=== PATIENT | male | born 1965 | race Caucasian/White ===

== ENCOUNTER 2017-06-26 20:11 | Emergency (ER) | payer BC ==
[~2017-06-26] VITALS: Ht 188 cm; Wt 160.0 kg
[~2017-06-26 20:11] MED LIST: ASPI-664 PO; ATOR10TA23 PO; FLUO20CA22 PO; LAMO25TA6 PO; METO25TA7 PO; OLAN2.5T16 PO
[2017-06-26 20:15] VITALS: Ht 188 cm; Wt 160.0 kg
[2017-06-26] MEDS ORDERED: ATOR20TA38 PO (23:18)
[2017-06-26] MEDS ORDERED: LOSA1TAB19 PO (23:18)
--- NOTE | 2017-06-26 23:18 | ERD ---
ER Documentation Chief Complaint Date/Time DATE: 06/26/17 TIME: 23:16 Chief Complaint R knee pain for 3 months HPI 51-year-old male presents here in emergency department for complaints of right knee pain that started 3 months ago, patient states that it gives out on and off , yesterday, he was walking, it gave up on him, started to have the pain more worse, throbbing pain, 6/10 scale, is worse upon movement accompanied with swelling. Patient is able to bear weight on affected area but pain is worse. Patient denies any fever or chills. Patient denies any numbness or tingling. Patient denies any deformity. ROS All systems reviewed and are negative except as per history of present illness. Medications Home Meds Reported Medications Atorvastatin Calcium* (Atorvastatin Calcium*) Unknown Strength Tablet, PO QHS, # 30 TAB 06/26/17 Losartan-Hydrochlorothiazide (Losartan-HCTZ) Unknown Strength Tab, PO DAILY, TAB 06/26/17 Lamotrigine* (Lamictal* XR) 25 Mg Tab.er.24, 25 MG PO DAILY 09/06/12 Olanzapine (Zyprexa) 2.5 Mg Tablet, 2.5 MG PO DAILY 09/06/12 Metoprolol Succinate* (Toprol XL*) 25 Mg Tab.sr.24h, 25 MG PO DAILY 09/06/12 Atorvastatin (Lipitor) 10 Mg Tablet, 10 MG PO DAILY 09/06/12 Aspirin* (Aspirin* EC) 81 Mg Tablet.dr, 81 MG PO DAILY 09/06/12 Fluoxetine Hcl* (Fluoxetine Hcl*) 20 Mg Capsule, 20 MG PO BID 09/06/12 Allergies Allergies: Coded Allergies: No Known Allergy (Unverified , 09/06/12) PMhx/Soc History of Surgery: No Anesthesia Reaction: No Hx Neurological Disorder: Yes (bipolar,schizo affective,ptsd) Hx Respiratory Disorders: No Hx Cardiac Disorders: Yes (htn,hypercholesterolemia) Hx Psychiatric Problems: Yes (depression,ptsd) Hx Miscellaneous Medical Probl: No Hx Alcohol Use: Yes (stopped 100 days ago) Hx Substance Use: No Hx Tobacco Use: Yes (1 1/2 pack cigarrettes/day) Smoking Status: Current every day smoker FmHx Family History: No coronary disease, No diabetes, No other Physical Exam Vitals Vital Signs Date Time Temp Pulse Resp B/P Pulse Ox O2 Delivery O2 Flow Rate FiO2 06/26/17 20:15 98.1 114 24 133/75 97 Physical Exam GENERAL: The patient is well developed and appropriate for usual state of health, in no apparent distress. CHEST: Clear to auscultation bilaterally. There are no rales, wheezes or rhonchi. HEART: Regular rate and rhythm. No murmurs, clicks, rubs or gallops. No S3 or S4. ABDOMEN: Soft, nontender and nondistended. Good bowel sounds. No rebound or guarding. No gross peritonitis. No gross organomegaly or masses. No Garcia sign or McBurney point tenderness. BACK: No midline or flank tenderness. EXTREMITIES:Able to do full range of motion of the right knee without any restriction, mild swelling noted, no erythema noted, no deformity noted, mild tenderness on palpation on the lateral medial aspect of the knee. Equal pulses bilaterally. There is no peripheral clubbing, cyanosis or edema. No focal swelling or erythema. Full range of motion. Grossly neurovascularly intact. NEURO: Alert and oriented. Cranial nerves 2-12 intact. Motor strength in all 4 extremities with 5/5 strength. Sensation grossly intact. Normal speech and gait. SKIN: There is no apparent rash or petechia. The skin is warm and dry. HEMATOLOGIC AND LYMPHATIC: There is no evidence of excessive bruising or lymphedema. No gross cervical, axillary, or inguinal lymphadenopathy. Results 24 hrs Current Medications Medications (Trade) Dose Ordered Sig/Pedro Route PRN Reason Start Time Stop Time Status Last Admin Dose Admin Acetaminophen/ Hydrocodone Bitart ([place]ushing (10/325)) 1 tab ONCE ONCE PO 06/26/17 23:30 06/26/17 23:31 DC 06/26/17 23:16 Patient was given medication for pain here in emergency department, after treatment, patient verbalized feeling much better. Patient's pain is improved. PROCEDURE: knee x-ray CLINICAL INDICATION: Knee pain. TECHNIQUE: AP, lateral and oblique and the tunnel views of the right knee were obtained. COMPARISON: None FINDINGS: No evidence of fracture or dislocation. The medial, lateral, as well as patellofemoral knee joint compartments are well maintained. No joint effusion. No soft tissue or osseous abnormality. IMPRESSION: 1. No fracture or dislocation. 2. No joint effusion. 3. No soft tissue abnormality. RPTAT:AAJJ Ivon Calvillo, Physician Date Time Electronically viewed and signed by Ivon Calvillo Physician on 06/27/2017 00:27 PIPE/ CC: BETHANY WEINSTEIN NP After receiving patients xray report, a knee immobilizer was applied on the patients right knee. After application of the splint, patient has intact sensation and circulation on distal area of the affected joint. Patient does not complain of numbness or tingling after application of the splint. Patient tolerated procedure well. Crutches given afterwards Procedures/MDM Medical Decision Making: Patient's pain is most likely consistent with a knee sprain. There is no suspicion for neurovascular compromise. Patient has intact sensation and circulation of the affected extremity. There is low suspicion for septic arthritis. Patient does not have any fever. Radiology exams of the affected area does not show any fracture or dislocation. Disposition: Home. Patient is given prescription for ibuprofen for pain, Cushing for severe pain. Patient was advised to elevate the affected area and apply ice on affected area. Patient was advised that if symptoms are worse, numbness, tingling, high fever, unable to move joint, worsening symptoms, to return to emergency department immediately. Otherwise, patient is advised to follow up with the primary care doctor in 5-7 days for reevaluation of symptoms. Request MRI with PMD Departure Diagnosis: Primary Impression: Knee pain Chronicity: chronic Laterality: right Qualified Code: M25.561 - Chronic pain of right knee Condition: Stable Patient Instructions: Knee Pain, Uncertain Cause BETHANY WEINSTEIN NP Jun 26, 2017 23:18
[2017-06-26] MEDS ORDERED: HYDROCODONE/APAP (10/325) TAB PO ONE (23:30)
--- NOTE | 2017-06-27 00:27 | RADRPT ---
PROCEDURE: knee x-ray CLINICAL INDICATION: Knee pain. TECHNIQUE: AP, lateral and oblique and the tunnel views of the right knee were obtained. COMPARISON: None FINDINGS: No evidence of fracture or dislocation. The medial, lateral, as well as patellofemoral knee joint compartments are well maintained. No joint effusion. No soft tissue or osseous abnormality. IMPRESSION: 1. No fracture or dislocation. 2. No joint effusion. 3. No soft tissue abnormality. RPTAT:AAJJ Physician Claudine Date Time Electronically viewed and signed by Physician Claudine on 06/27/2017 00:27 PIPE/
[2017-06-27 00:37] VITALS: PULSE 96
[2017-06-27] MEDS ORDERED: HYDR-906 PO (00:39)
[2017-06-27] MEDS ORDERED: IBUP-1542 PO (00:39)
== END 2017-06-27 01:12 | disposition home or self-care (01) ==
LOC: FTE 20:11
DX: M25.561 Pain in right knee (principal); I10 Essential (primary) hypertension; F17.210 Nicotine dependence, cigarettes, uncomplicated; Z79.82 Long term (current) use of aspirin
CPT/HCPCS: 29505; 73562; 99283; Z7610

== ENCOUNTER → 2017-08-03 | Outpatient (CLI) | payer BC ==
[~2017-08-03] MED LIST changes: +ATOR20TA38 PO; +HYDR-906 PO; +IBUP-1542 PO; +LOSA1TAB19 PO; +METO-335 PO; -METO25TA7 PO
--- NOTE | 2017-08-04 09:30 | HKNOTE ---
DATE OF SERVICE: 08/03/2017 CHIEF COMPLAINT: Right knee pain. HISTORY OF PRESENT ILLNESS: This is a 52-year-old male complaining of right knee pain for the last several months. He has occasional locking and catching of the right knee. He has instability of th e right knee. He is using a cane for ambulation. He has visited the [facility] emergency [facility] several times for the right knee pain. He does not use any braces. He takes [place] from h is primary care physician with little pain relief. The pain is interfering with his activities of d aily living. He denies any groin or back pain. GAIT: Antalgic gait, use of a cane. RIGHT KNEE NEUTRAL ALIGNMENT: Tender over the medial joint line, nontender over the lateral joint l ine, 0 to 130 degrees range of motion, negative Lili, negative anterior drawer, negative posterio r drawer, positive Darian's. MOTOR STRENGTH: 5/5 quadriceps, hamstrings, tibialis anterior, gastrocsoleus and peroneals. X-RAYS RIGHT KNEE: Two views of the right knee demonstrate no fractures, dislocations. There are n o degenerative changes seen. IMPRESSION: A 52-year-old male with right knee strain. PLAN: We will request authorization for a right knee MRI to rule out meniscus tear. Following his MRI, he will call and make an appointment for followup. Dictated By: AHMET CABRERA/CHANTAL Conf#: [id number] DID#: [id number]
== END | disposition home or self-care (01) ==
LOC: HKI 13:53
PROVIDERS: ATTEND Orthopaedic Surgery Adult Reconstructive Orthopaedic Surgery
DX: S86.911A Strain of unspecified muscle(s) and tendon(s) at lower leg level, right leg, initial encounter (principal); X58.XXXA Exposure to other specified factors, initial encounter
CPT/HCPCS: G0463

== ENCOUNTER → 2017-09-19 | Outpatient (CLI) | payer BC ==
--- NOTE | 2017-09-19 15:42 | HKNOTE ---
DATE OF SERVICE: 09/19/2017 CHIEF COMPLAINT: Right knee pain. HISTORY OF PRESENT ILLNESS: Mr. Horton is here today for followup to go over his MRI results of the right knee. He is complaining of pain and instability of the right knee. He has difficulty ambulating. He is using a cane for ambulation. He has locking, catching of his knee. Otherwise, he has no complaints. RIGHT KNEE EXAMINATION: 0 to 120 degrees range of motion, stable to varus valgus stress. Negative Lili, negative anterior drawer, negative posterior drawer. Positive Darian's. MRI RIGHT KNEE: There is a partial tear of the anterior cruciate ligament. There is a complex tear of the posterior horn of the medial meniscus. There is a popliteal fossa cyst. IMPRESSION: A 52-year-old male with a right knee posterior horn medial meniscus tear and partial tear of the anterior cruciate ligament. PLAN: I discussed treatment options with Mr. Horton. I discussed weight loss and physical therapy. We will also request authorization for referral to Dr. Anthony Mejia for consultation. He will follow up with me as needed. Dictated By: AHMET CABRERA/CHANTAL Conf#: [id number] DID#: [id number] LORRAINE
== END | disposition home or self-care (01) ==
LOC: HKI 09:18
PROVIDERS: ATTEND Orthopaedic Surgery Adult Reconstructive Orthopaedic Surgery
DX: S83.241D Other tear of medial meniscus, current injury, right knee, subsequent encounter (principal); M25.561 Pain in right knee
CPT/HCPCS: G0463

== ENCOUNTER 2017-10-27 06:36 | Emergency (ER) | END 2017-10-27 10:30 | disposition left against medical advice (07) ==

== ENCOUNTER 2018-07-19 22:25 | Inpatient (IN) | END 2018-07-22 10:11 | disposition left against medical advice (07) | DRG 304 ==

== ENCOUNTER 2018-12-07 08:20 | Inpatient (IN) | payer BC ==
[~2018-12-07] VITALS: Ht 188 cm; Wt 141.9 kg
[2018-12-07] VITALS (16 sets, daily range): BP systolic 150–181; BP diastolic 96–116; PULSE 79–99; RESP 14–24; Ht 188 cm; Wt 141.9 kg
[~2018-12-07 08:20] MED LIST changes: -ASPI-664 PO; +ASPI-817 PO; +HYDR-4011 PO; -HYDR-906 PO; -LOSA1TAB19 PO; +LOSA1TAB22 PO
[2018-12-07] MEDS ORDERED: morphine 4 MG/ML VIAL IV STA (08:26)
[2018-12-07] MEDS ORDERED: ONDANSETRON 4 MG INJ IV STA (08:26)
[2018-12-07] MEDS ORDERED: IPRATROPIUM (NEB) 0.5 MG/2.5 ML AMP INH STA (08:26)
[2018-12-07] MEDS ORDERED: ALBUTEROL 0.5% (NEB) 2.5 MG/0.5 ML AMP INH STA (08:26)
[2018-12-07] MEDS ORDERED: LORAZEPAM 2 MG INJ IV STA (08:26)
[2018-12-07] MEDS ORDERED: METHYLPREDNISOLONE 125 MG INJ IV STA (08:26)
[2018-12-07] MEDS ORDERED: FUROSEMIDE 40 MG INJ IV ONE (08:30)
[2018-12-07] MEDS ORDERED: NITROGLYCERIN 50 MG/D5W (PMX) 250 ML IV STA (08:34)
--- NOTE | 2018-12-07 08:42 | ERD ---
ER Documentation Chief Complaint Chief Complaint shortness of breath - history of CHF HPI This is a 53-year-old male with a history of COPD utilizes tobacco, congestive heart failure systolic dysfunction, hypertension, psychiatric disturbance with posttraumatic stress disorder, bipolar affective disorder, hyperlipidemia and remote amphetamine abuse. Patient indicates he is not utilized crystal meth for over 4 months. Indicates he is not taking any medications for over 1 month due to changes in his insurance. He stated he recently moved to [place] and therefore was unable to get in to see a primary care physician. He presents to the emergency department today due to the severe dyspnea which he states is progressively worsened over the past 48 hours. He states he is unable to walk several steps before becoming short of breath. He has had a productive cough with whitish sputum but denies any fever shaking or chills. He denies any chest pain or pressure. He denies any swelling of his lower extremities. ROS All systems reviewed and are negative except as per history of present illness. Medications Home Meds Active Scripts Hydrocodone/Acetaminophen ([place] 5-325 Tablet) 1 Each Tablet, 1 TAB PO Q6H, #20 TAB Prov:BETHANY WEINSTEIN NP 06/27/17 Ibuprofen* (Motrin*) 600 Mg Tab, 600 MG PO Q6H PRN for PAIN AND OR ELEVATED TEMP, #30 TAB Prov:BETHANY WEINSTEIN SEX THERAPIST 06/27/17 Reported Medications Atorvastatin Calcium* (Atorvastatin Calcium*) Unknown Strength Tablet, PO QHS, #30 TAB 06/26/17 Losartan-Hydrochlorothiazide (Losartan-HCTZ) Unknown Strength Tab, PO DAILY, TAB 06/26/17 Lamotrigine* (Lamictal* XR) 25 Mg Tab.er.24, 25 MG PO DAILY 09/06/12 Olanzapine (Zyprexa) 2.5 Mg Tablet, 2.5 MG PO DAILY 09/06/12 Metoprolol Succinate* (Toprol XL*) 25 Mg Tab.sr.24h, 25 MG PO DAILY 09/06/12 Atorvastatin (Lipitor) 10 Mg Tablet, 10 MG PO DAILY 09/06/12 Aspirin* (Aspirin* EC) 81 Mg Tablet.dr, 81 MG PO DAILY 09/06/12 Fluoxetine Hcl* (Fluoxetine Hcl*) 20 Mg Capsule, 20 MG PO BID 09/06/12 Allergies Allergies: Coded Allergies: No Known Allergy (Unverified , 09/06/12) PMhx/Soc Anesthesia Reaction: No Hx Neurological Disorder: No (Patient denies) Hx Respiratory Disorders: Yes (COPD) Hx Cardiac Disorders: Yes (Hypertension, Hyperlipidemia) Hx Psychiatric Problems: Yes (PTSD, Bipolar) Hx Miscellaneous Medical Probl: No (Patient denies) Hx Alcohol Use: Yes Hx Substance Use: Yes Hx Tobacco Use: Yes Physical Exam Vitals Vital Signs Date Temp Pulse Resp B/P (MAP) Pulse Ox O2 O2 Flow FiO2 Time Delivery Rate 12/07/18 99 22 212/122 100 BIPAP 10:15 (152) 12/07/18 104 22 192/124 100 BIPAP 10:00 (146) 12/07/18 100 28 09:58 12/07/18 102 100 40 09:56 12/07/18 109 22 196/122 100 BIPAP 09:35 (146) 12/07/18 110 22 200/120 100 BIPAP 09:20 (146) 12/07/18 110 22 180/130 100 BIPAP 09:05 (147) 12/07/18 109 100 40 08:42 12/07/18 97.7 122 32 216/134 96 08:21 (161) Physical Exam Constitutional:Well-developed. Well-nourished. Patient in severe respiratory distress. HEENT:Normocephalic. Atraumatic.Pupils were equal round reactive to light. Moist mucous membranes.No tonsillar exudates. Neck: No nuchal rigidity. No lymphadenopathy. No posterior cervical spine tenderness or step-offs. Respiratory: Patient using accessory muscles of respiration. Unable to speak more than 2 words at a time before becoming short of breath. Bilateral rhonchi and wheezing bilaterally. Cardiovascular: Regular rate regular rhythm.No murmurs. No rubs were appreciated.S1, S2 normal. Distal pulses are palpable 2+ bilaterally. GI: Abdomen was soft. Nontender. Non Distended. No pulsatile abdominal masses or bruits. No rebound. No guarding. Bowel sounds were present and normal. Muscle skeletal: Full range of motion of both the upper and lower extremities bilaterally.Normal muscle tone.No assymetrical calf tenderness or swelling. Skin: Diaphoretic. No petechia, no purpura. No lesions on the palms or the soles of the feet. No maculopapular rash. NEURO: Patient was alert, awake, orientated x3.No facial droop. Gait observed and normal with no ataxia however patient was in severe respiratory distress and had difficulty ambulating.Speech had regular rate and rhythm. No focal neurological deficits. Result Diagram: 12/07/18 0835 12/07/18 0835 Results 24 hrs Laboratory Tests Test 12/07/18 08:35 12/07/18 09:38 White Blood Count 9.4 10^3/ul Red Blood Count 5.52 10^6/ul Hemoglobin 13.5 g/dl Hematocrit 43.6 % Mean Corpuscular Volume 79.0 fl Mean Corpuscular Hemoglobin 24.5 pg Mean Corpuscular Hemoglobin Concent 31.0 g/dl Red Cell Distribution Width 14.5 % Platelet Count 261 10^3/UL Mean Platelet Volume 10.6 fl Immature Granulocytes % 0.200 % Neutrophils % 71.9 % Lymphocytes % 17.1 % Monocytes % 8.8 % Eosinophils % 1.3 % Basophils % 0.7 % Nucleated Red Blood Cells % 0.0 /100WBC Immature Granulocytes # 0.020 10^3/ul Neutrophils # 6.8 10^3/ul Lymphocytes # 1.6 10^3/ul Monocytes # 0.8 10^3/ul Eosinophils # 0.1 10^3/ul Basophils # 0.1 10^3/ul Nucleated Red Blood Cells # 0.0 10^3/ul Prothrombin Time 13.5 Sec Prothrombin Time Ratio 1.1 INR International Normalized Ratio 1.02 Activated Partial Thromboplast Time 29.2 Sec Sodium Level 140 mmol/L Potassium Level 4.3 mmol/L Chloride Level 108 mmol/L Carbon Dioxide Level 23 mmol/L Anion Gap 9 Blood Urea Nitrogen 17 mg/dl Creatinine 0.99 mg/dl Est Glomerular Filtrat Rate mL/min > 60 mL/min Glucose Level 120 mg/dl Calcium Level 9.2 mg/dl Total Bilirubin 0.7 mg/dl Direct Bilirubin 0.00 mg/dl Indirect Bilirubin 0.7 mg/dl Aspartate Amino Transf (AST/SGOT) 32 IU/L Alanine Aminotransferase (ALT/SGPT) 35 IU/L Alkaline Phosphatase 139 IU/L Creatine Kinase 127 IU/L Creatinine Kinase MB (Mass) 3.07 ng/ml Troponin I 0.050 ng/ml B-Type Natriuretic Peptide 4700 PG/ML Total Protein 6.8 g/dl Albumin 4.0 g/dl Globulin 2.80 g/dl Albumin/Globulin Ratio 1.42 Acetaminophen Level < 10.0 ug/ml Ethyl Alcohol Level < 10.0 mg/dl Urine Color YELLOW Urine Clarity SLIGHTLY CLOUDY Urine pH 5.0 Urine Specific [place] 1.023 Urine Ketones 2+ mg/dL Urine Nitrite NEGATIVE mg/dL Urine Bilirubin NEGATIVE mg/dL Urine Urobilinogen NEGATIVE mg/dL Urine Leukocyte Esterase NEGATIVE Jacey/ul Urine Microscopic RBC 3 /HPF Urine Microscopic WBC 4 /HPF Urine Mucus MANY /HPF Urine Hemoglobin 1+ mg/dL Urine Glucose NEGATIVE mg/dL Urine Total Protein NEGATIVE mg/dl Urine Opiates Screen Positive Urine Barbiturates Negative Urine Amphetamines Screen Pending Urine Benzodiazepines Screen Negative Urine Cocaine Screen Negative Urine Cannabinoids Negative Current Medications Medications Dose Sig/Pedro Start Time Status Last (Trade) Ordered Route PRN Stop Time Admin Dose Reason Admin Lorazepam 1 mg ONCE STAT 12/07/18 DC 12/07/18 (Ativan) IV 08:26 08:39 12/07/18 08:34 Morphine 4 mg ONCE STAT 12/07/18 DC 12/07/18 Sulfate IV 08:26 08:40 (morphine) 12/07/18 08:34 Ondansetron 4 mg ONCE STAT 12/07/18 DC 12/07/18 HCl (Zofran IV 08:26 08:39 Inj) 12/07/18 08:34 Furosemide 80 mg ONCE ONCE 12/07/18 DC 12/07/18 (Lasix) IV 08:30 08:39 12/07/18 08:34 Albuterol 10 mg ONCE STAT 12/07/18 DC 12/07/18 (Proventil INH 08:26 08:49 0.5% (Neb)) 12/07/18 08:34 Ipratropium 1 mg ONCE STAT 12/07/18 DC 12/07/18 [place] INH 08:26 08:49 (Atrovent 12/07/18 08:34 0.02% (Neb)) 125 mg ONCE STAT 12/07/18 DC 12/07/18 Methylprednis IV 08:26 08:39 olone Sodium 12/07/18 08:34 Succinate (Solu-Medrol) 250 ml @ ONCE STAT 12/07/18 12/07/18 Nitroglycerin 12 mls/hr IV 08:34 09:22 / Dextrose 12/08/18 05:23 Ondansetron 4 mg ER BRIDGE 12/07/18 HCl (Zofran PRN IV 10:30 Inj) NAUSEA/VOMITI 12/08/18 10:29 NG 650 mg ER BRIDGE 12/07/18 Acetaminophen PRN PO 10:30 (Tylenol .MILD PAIN 12/08/18 10:29 Tab) 1-3 OR TEMP Procedures/MDM The patient presented to the emergency department with shortness of breath. My differential diagnosis included but was not limited to upper airway obstruction, CHF, pulmonary embolism, cardiac ischemia, pneumonia, pneumothorax, anemia, drug overdose, pulmonary edema, COPD or asthma. The patient was admitted placed on a nurse monitoring continuous pulse oximetry and IV access was established by nursing staff. The patient was placed on noninvasive mechanical ventilation due to his severe dyspnea. He was given nebulizer treatments of albuterol and Atrovent. I also administered IV steroids given that the patient has underlying COPD which also felt to be a component to his respiratory distress in conjunction with congestive heart failure. The patient was also given intravenous Lasix to help with potential fluid overload 12 Lead EKG tracing ordered and reviewed by myself showed: Sinus tachycardia at 119 bpm and no arrhythmia. DE interval normal. QRS duration normal. No ST segment elevation left ventricular hypertrophy. No ST segment depression. No changes consistent with acute ischemia. The patient also appeared to be very anxious and was given IV Ativan. He was now complaining of diffuse myalgias and was also given intravenous morphine and Zofran for analgesic control This patient also presented to the emergency department with severely elevated blood pressure. My differential diagnosis included but was not limited to conditions that could end-organ damage such as acute coronary syndrome, acute pulmonary edema, aortic dissection, subarachnoid hemorrhage, intracerebral hemorrhage, cerebral infarction, withdrawal syndromes from beta blockers, or s tates of catecholamine excess such as pheochromocytoma or drug intoxication. The patient had uncontrolled hypertensive with end-organ damage to suggest hypertensive emergency. The treatment goal was immediate reduction of the mean arterial blood pressure. This was done in a controlled, graded manor, using improvement of the patient's condition as a guide. The patient's blood pressure reduction did not exceed more then a 20-25 percent reduction within the first 30 to 60 minutes. The patient was put on a nurse monitoring, continuous pulse oximetry, and IV access was established by nursing staff. The antihypertensive agent used was nitroglycerin The patient's BNP was significantly elevated at 4700. He had significant improvement of his respiratory distress when placed on BiPAP. This was consistent with his congestive heart failure exacerbation symptoms. The patient will be admitted in serious condition to the telemetry service under the care of the hospitalist Dr. Wen Critical Care: Time: 70 minutes Treatments/Evaluations: Close monitoring and treatment of unstable vital signs, cardiorespiratory, and neurologic status, while maintaining tight balance of fluid, respiratory, and cardiac interventions. Time does not include performing any of the above billable procedures. Departure Diagnosis: Primary Impression: COPD exacerbation Additional Impressions: CHF exacerbation Heart failure type: systolic Qualified Codes: I50.23 - Acute on chronic sy stolic (congestive) heart failure Respiratory distress Hypertensive emergency Condition: Serious CHACHO MORGAN MD Dec 07, 2018 08:42
[2018-12-07] MEDS ORDERED: ACETAMINOPHEN 325 MG TAB PO PRN ×2 (10:30→16:00)
[2018-12-07] MEDS ORDERED: ONDANSETRON 4 MG INJ IV PRN ×2 (10:30→16:00)
--- NOTE | 2018-12-07 15:54 | QN ---
Documentation Comment H and P dictated. addendum Patient had recent echo that was reviewed and -both systolic and diastolic dysfxn with CM and last EF of 35% -Noncompliance to therapy, will need counselling prior to d/c . JORGE SLATER Dec 07, 2018 15:54
[2018-12-07] MEDS ORDERED: NITROGLYCERIN (SL) 0.4 MG TAB SL PRN (16:00)
[2018-12-07] MEDS ORDERED: ZOLPIDEM 5 MG TAB PO PRN (16:00)
[2018-12-07] MEDS ORDERED: LORAZEPAM 0.5 MG TAB PO PRN (16:00)
--- NOTE | 2018-12-07 16:31 | HP ---
DATE OF ADMISSION: 12/07/2018 PRESENTING COMPLAINT: Shortness of breath. Please note that I am unable to give a detailed history because the patient is on the BiPAP mask and even though he was still having shortness of breath, he looks more comfortable. HISTORY OF PRESENTING COMPLAINT: Mr. Horton is a 53-year-old male with a past medical history of c ongestive heart failure as well as high blood pressure and dyslipidemia, who presents to the emergenc y room because of shortness of breath that has been worsening for the last 3 days. The patient also has a psychiatric history of PTSD and bipolar disorder per the records. He tells me that his shortne ss of breath has been getting worse over the last 3 days, but he does not really have any medication at home that he takes including medications for his high blood pressure and has not seen a doctor in a while. Of note is that this patient was last seen by myself back in 06/2018, at that time he left the intensive care unit against medical advice. When he came in, he was in some respiratory distress and had to be put on noninvasive positive pressure ventilation to improve his oxygenation. Per the emergency room notes, the patient recently moved to [place] and has not seen a primary care do ctor. He also has been having a lot of dyspnea on exertion and a lot of orthopnea. He is unable to lie flat. I asked him about lower extremity swelling and he says he feels like his extremities are m ildly slow, but they are not significant. Based on review of the chart, the patient used to have a h istory of noncompliance with therapy. PAST MEDICAL HISTORY: 1. High blood pressure. 2. Dyslipidemia. 3. CHF. 4. PTSD and bipolar disorder. 5. Tobacco use. The patient continues to smoke actively. PAST SURGICAL HISTORY: No documented surgical history. ALLERGIES: NO KNOWN DRUG ALLERGIES. SOCIAL HISTORY: Even though patient denies recent methamphetamine use, the patient's urine drug toxi cology screen was positive for meth use. As mentioned earlier, he smokes about a pack and a half of cigarettes daily. Denies alcohol use. HOME MEDICATIONS: As mentioned earlier, the patient has not taken any medications for months, but hi s previous recommended medications were reviewed in the chart. PHYSICAL EXAMINATION VITAL SIGNS: At this time, temperature 98.2, pulse 86, respirations 18, blood pressure 151/96, satur ations 100% on BiPAP with FIO2 of 28%. GENERAL: Comfortable on the BiPAP, was in no distress. He was sleeping when I walked in, but was ea sy to arouse. HEENT: Head is normocephalic without evidence of trauma. Pupils are equal and reactive. There was no conjunctival pallor. There was no scleral icterus. Mucous membranes were not evaluated due to th e presence of BiPAP mask. NECK: Difficult to examine. CHEST: He had diminished breath sounds bilaterally. There was no wheezing. Again due to patient's habitus, it is hard to ascertain for crackles. CARDIOVASCULAR: Heart sounds, S1 and S2. No murmurs were auscultated. ABDOMEN: Protuberant, soft, nontender with normoactive bowel sounds. EXTREMITIES: Lower extremity had minimal, if any, trace edema. SKIN: Otherwise devoid of rash or jaundice. LABORATORY VALUES: So far, we have 1 negative troponin. BNP was 4700. The rest of complete metabol ic profile was basically normal except for mild elevation in alkaline phosphatase. Hematology: The patient has hypochromasia, microcytosis and a mild anemia. Coag profile is unremarkable. Urinalysis was not suggestive of an infection. Urine toxicology screen was positive for methamphetamine and op iates. DIAGNOSTIC DATA: EKG: Normal sinus rhythm without arrhythmias, good rate control. IMAGING: Chest x-ray: Moderate cardiomegaly with mild pulmonary vascular congestion. ASSESSMENT: A 53-year-old male who comes in for shortness of breath worsening for the last 3 days wi th orthopnea and dyspnea on exertion, admitted and managed for the followin. Acute congestive heart failure exacerbation. 2. History of noncompliance with therapy. 3. Hypertension, now with still suboptimal control, status post hypertensive emergency. When the edgar beckham came to the emergency room, his systolic blood pressure started at 212/122 and is requiring beulah ardipine drip to keep it controlled. 4. History of dyslipidemia, status unknown. 5. Chronic methamphetamine user. 6. Chronic tobacco user. The patient smokes 1-1/2 packs per day. 7. History of posttraumatic stress disorder and depression. 8. Likely obstructive sleep apnea. 9. Acute respiratory failure requiring noninvasive positive pressure ventilation. PLAN: Admit the patient to telemetry floor. Continue seizure management to include diuresis and wea n off oxygen therapy. Wean off the BiPAP. Resume medications to improve blood pressure control. Co nsult cardiology and pulmonary consultation if indicated. Rule out acute coronary syndrome. Further intervention will depend on his clinical course. Plan of care has been discussed with him in detail . Questions have been answered. Prophylaxis, he will be on Lovenox. Dictated By: JORGE SLATER MD BA/CHANTAL Conf#: [id number] DID#: [id number] CC: COLE MANZANO DO; CHACHO MORGAN MD;*EndCC*
[2018-12-07] MEDS: DOCUSATE SODIUM 100 MG CAP PO SCH ×2 (18:11→18:49)
[2018-12-07] MEDS ORDERED: LOSARTAN 50 MG TAB PO ONE (19:00)
[2018-12-07] MEDS: ALBUTEROL/IPRATROPIUM (NEB) 3 ML AMP HHN PRN (20:21)
[2018-12-07] MEDS: ATORVASTATIN 10 MG TAB PO SCH (20:53)
[2018-12-07] MEDS: METOPROLOL (XL) 25 MG TAB PO SCH (20:54)
[2018-12-07] MEDS: NIFEdipine (XL) 30 MG TAB PO SCH (20:54)
[2018-12-07] MEDS: FAMOTIDINE 20 MG TAB PO SCH (20:55)
[2018-12-08] VITALS (36 sets, daily range): BP systolic 128–213; BP diastolic 77–133; PULSE 80–110; RESP 13–22
[2018-12-08] MEDS ORDERED: LABETALOL HCL 20MG INJ IV PRN (03:30)
[2018-12-08] MEDS: hydrALAzine 20 MG INJ IV PRN (04:17)
[2018-12-08] MEDS: DOCUSATE SODIUM 100 MG CAP PO SCH ×2 (05:20→21:01)
[2018-12-08] MEDS ORDERED: LOSARTAN 50 MG TAB PO SCH (09:00)
[2018-12-08] MEDS: FAMOTIDINE 20 MG TAB PO SCH ×2 (10:51→21:01)
[2018-12-08] MEDS: SERTRALINE 100 MG TAB PO SCH (10:51)
[2018-12-08] MEDS: NIFEdipine (XL) 30 MG TAB PO SCH (10:51)
[2018-12-08] MEDS: FUROSEMIDE 40 MG INJ IV SCH (10:51)
[2018-12-08] MEDS: METOPROLOL (XL) 25 MG TAB PO SCH (10:52)
[2018-12-08] MEDS: ASPIRIN 81 MG TAB PO SCH (10:52)
[2018-12-08] MEDS: ENOXAPARIN 40 MG/0.4 ML SYG SC SCH (11:01)
--- NOTE | 2018-12-08 12:20 | PN ---
Date/Time of Note Date/Time of Note DATE: 12/08/18 TIME: 12:19 Assessment/Plan VTE Prophylaxis Risk score (from Ns)>0 risk: 8 SCD applied (from Nsg): Yes Pharmacological prophylaxis: LMWH Lines/Catheters IV Catheter Type (from Nrs): Peripheral IV Assessment/Plan Hospital Course SUBJECTIVE: Dyspnea improved. Denies any chest pain. OBJECTIVE: Physical Exam General: Morbidly obese, 53 year-old male lying in bed in no apparent distress. HEENT: Normocephalic, atraumatic. Eyes: Anicteric sclerae, conjunctivae clear. ENT: Nasal septum midline, oral mucosa moist. Neck: Short and obese. Respiratory: Bilaterally diminished breath sounds. No use of accessory muscles of respiration. Bilateral rhonchi. Cardiovascular: S1, S2 heard. Regular rate and rhythm. Abdomen: Soft, nontender, and nondistended. Bowel sounds positive in all 4 quadrants. Genitourinary: Deferred. Extremities: No cyanosis, no clubbing. Bilateral 1+-2+ pedal edema. Neurologic: Cranial nerves II through XII grossly intact. The patient is awake, alert, and oriented. Labs & Vitals per chart ASSESSMENT & PLAN 53-year-old male with comorbidities including cardiomyopathy with ejection fraction of 35%, systolic heart failure, hypertension, dyslipidemia, morbid obesity, nicotine use, methamphetamine abuse, and mood disorder who came to the emergency room with chief complaint of dyspnea who was found to have evidence of underlying CHF exacerbation and was admitted to inpatient setting for further treatment and evaluation. 1. Acute respiratory failure. -Hypoxic. -Probably secondary to CHF exacerbation. -Status post noninvasive positive pressure ventilation. -Continue diuresis. 2. Acute on chronic CHF exacerbation. -Systolic dysfunction. -Continue diuresis. 3. Cardiomyopathy. -Ejection fraction of 35%. -Continue beta-blockers and ARB's. 4. Hypertensive emergency. -Status post nitroglycerin drip. Continue beta-blockers, ARB, and-calcium channel blockers. 5. Dyslipidemia. -Continue statins. 6. Substance abuse. -Chronic nicotine and methamphetamine user. -Cessation advised. 7. Morbid obesity. -BMI more than 40. -Weight reduction would be advised. 8. Fluids, electrolytes, and nutrition. -Low-cholesterol diet. 9. DVT prophylaxis. -Subcutaneous Lovenox. 10. Plan. -Continue diuretic therapy. -Await clinical improvement. -Obtain cardiology evaluation. -Will transfer the patient to telemetry floor. The patient was seen in collaboration with Dr. Koch. Critical care time: 35 minutes. Result Diagram: [id number]/[id number] Results 24hrs Laboratory Tests Test 12/07/18 14:00 12/07/18 16:17 12/07/18 22:00 12/07/18 22:11 Blood Gas Blood arterial Blood arterial Specimen Source Arterial Blood 12/07/2018 2:58: 12/07/2018 8:00: Date Drawn 25 PM 28 PM Arterial Blood 7.409 7.398 pH (Temp corrected) Arterial Blood 43.3 44.9 pCO2 (Temp correct) Arterial Blood 81.6 75.3 L pO2 (Temp corrected) Arterial Blood 26.8 H 27.1 H HCO3 Arterial Blood 1.8 1.8 Base Excess Arterial Blood 95.6 94.3 L Oxygen Saturatio n Kal Test ACCEPTAB ACCEPTAB Arterial Blood Right Radial Left Radial Gas Puncture Site Arterial 0.8 0.6 Blood Carboxyhem oglobin Arterial Blood 0.3 0.3 Methemoglobin Blood Gas A-a O2 66.9 H 64.1 H Differential Oxyhemoglobin 94.5 93.5 Percent Blood Gas 37.0 37.0 Temperature Blood Gas 14.0 Respiration Rate Blood Gas Actual 20 16 Respiration Rate Blood Gas MASK - BIPAP NASAL CANNULA Modality FiO2 28.0 27.0 Blood Gas 10 Pressure Support Blood Gas 15/5 IPAP/EPAP Ratio Blood Gas Myrna CONNOLLY Notified Whom Blood Gas 12/07/2018 3:07: 12/07/2018 8:11: Notified Time 05 PM 05 PM Creatine Kinase 79 64 Creatine Kinase 3.1 3.8 Index Creatinine 2.48 H 2.44 H Kinase MB (Mass) Troponin I 0.014 0.019 Test 12/08/18 05:20 White Blood 9.2 Count Red Blood Count 5.47 Hemoglobin 13.5 L Hematocrit 43.9 Mean Corpuscular 80.3 L Volume Mean Corpuscular 24.7 L Hemoglobin Mean Corpuscular 30.8 L Hemoglobin Shelby nt Red Cell 13.9 Distribution Width Platelet Count 281 Mean Platelet 11.0 H Volume Immature 0.700 H Granulocytes % Neutrophils % 89.7 H Lymphocytes % 6.6 L Monocytes % 2.9 Eosinophils % 0.0 Basophils % 0.1 Nucleated Red 0.0 Blood Cells % Immature 0.060 H Granulocytes # Neutrophils # 8.3 H Lymphocytes # 0.6 L Monocytes # 0.3 Eosinophils # 0.0 Basophils # 0.0 Nucleated Red 0.0 Blood Cells # Sodium Level 138 Potassium Level 4.9 Chloride Level 103 Carbon Dioxide 22 Level Anion Gap 13 Blood Urea 21 H Nitrogen Creatinine 0.76 Est Glomerular > 60 Filtrat Rate mL/min Glucose Level 195 Calcium Level 8.8 Magnesium Level 2.0 Exam/Review of Systems Exam Vitals Vital Signs Date Temp Pulse Resp B/P (MAP) Pulse Ox O2 O2 Flow FiO2 Time Delivery Rate 12/08/18 2.0 10:41 12/08/18 84 08:00 12/08/18 16 95 Nasal 04:15 Cannula 12/08/18 98.5 04:00 12/07/18 98 20:22 Intake and Output 12/07/18 12/07/18 12/08/18 1515:00 23:00 07:00 IntakeIntake Total 268 ml OutputOutput Total 3000 ml 1000 ml BalanceBalance -3000 ml -732 ml Results Results 24hrs Laboratory Tests Test 12/07/18 14:00 12/07/18 16:17 12/07/18 22:00 12/07/18 22:11 Blood Gas Blood arterial Blood arterial Specimen Source Arterial Blood 12/07/2018 2:58: 12/07/2018 8:00: Date Drawn 25 PM 28 PM Arterial Blood 7.409 7.398 pH (Temp corrected) Arterial Blood 43.3 44.9 pCO2 (Temp correct) Arterial Blood 81.6 75.3 L pO2 (Temp corrected) Arterial Blood 26.8 H 27.1 H HCO3 Arterial Blood 1.8 1.8 Base Excess Arterial Blood 95.6 94.3 L Oxygen Saturatio n Kal Test ACCEPTAB ACCEPTAB Arterial Blood Right Radial Left Radial Gas Puncture Site Arterial 0.8 0.6 Blood Carboxyhem oglobin Arterial Blood 0.3 0.3 Methemoglobin Blood Gas A-a O2 66.9 H 64.1 H Differential Oxyhemoglobin 94.5 93.5 Percent Blood Gas 37.0 37.0 Temperature Blood Gas 14.0 Respiration Rate Blood Gas Actual 20 16 Respiration Rate Blood Gas MASK - BIPAP NASAL CANNULA Modality FiO2 28.0 27.0 Blood Gas 10 Pressure Support Blood Gas 15/5 IPAP/EPAP Ratio Blood Gas Myrna CONNOLLY Notified Whom Blood Gas 12/07/2018 3:07: 12/07/2018 8:11: Notified Time 05 PM 05 PM Creatine Kinase 79 64 Creatine Kinase 3.1 3.8 Index Creatinine 2.48 H 2.44 H Kinase MB (Mass) Troponin I 0.014 0.019 Test 12/08/18 05:20 White Blood 9.2 Count Red Blood Count 5.47 Hemoglobin 13.5 L Hematocrit 43.9 Mean Corpuscular 80.3 L Volume Mean Corpuscular 24.7 L Hemoglobin Mean Corpuscular 30.8 L Hemoglobin Shelby nt Red Cell 13.9 Distribution Width Platelet Count 281 Mean Platelet 11.0 H Volume Immature 0.700 H Granulocytes % Neutrophils % 89.7 H Lymphocytes % 6.6 L Monocytes % 2.9 Eosinophils % 0.0 Basophils % 0.1 Nucleated Red 0.0 Blood Cells % Immature 0.060 H Granulocytes # Neutrophils # 8.3 H Lymphocytes # 0.6 L Monocytes # 0.3 Eosinophils # 0.0 Basophils # 0.0 Nucleated Red 0.0 Blood Cells # Sodium Level 138 Potassium Level 4.9 Chloride Level 103 Carbon Dioxide 22 Level Anion Gap 13 Blood Urea 21 H Nitrogen Creatinine 0.76 Est Glomerular > 60 Filtrat Rate mL/min Glucose Level 195 Calcium Level 8.8 Magnesium Level 2.0 Medications Medication Current Medications Lorazepam (Ativan) 0.5 mg Q8H PRN PO .ANXIETY; Start 12/07/18 at 16:00 Ondansetron HCl (Zofran Inj) 4 mg Q6H PRN IV NAUSEA/VOMITING; Start 12/07/18 at 16:00 Aspirin (Aspirin) 81 mg DAILY PO Last administered on 12/08/18at 10:52; Admin Dose 81 MG; Start 12/08/18 at 09:00 Furosemide (Lasix) 40 mg DAILY IV Last administered on 12/08/18at 10:51; Admin Dose 40 MG; Start 12/08/18 at 09:00 Nitroglycerin (Nitroglycerin (Sl Tab) 0.4 Mg) 1 tab Q5M PRN SL .CHEST PAIN; Start 12/07/18 at 16:00 Acetaminophen (Tylenol Tab) 650 mg Q6H PRN PO .PAIN 1-3 OR TEMP; Start 12/07/18 at 16:00 Zolpidem Tartrate (Ambien) 5 mg QHS PRN PO .INSOMNIA; Start 12/07/18 at 16:00 Famotidine (Pepcid) 20 mg Q12 PO Last administered on 12/08/18 10:51; Admin Dose 20 MG; Start 12/07/18 at 21:00 Enoxaparin Sodium (Lovenox) 40 mg DAILY SC Last administered on 12/08/18 11:01; Admin Dose 40 MG; Start 12/08/18 at 09:00 Atorvastatin Calcium (Lipitor) 10 mg QHS PO Last administered on 12/07/18 20:53; Admin Dose 10 MG; Start 12/07/18 at 21:00 Metoprolol Succinate (Toprol Xl) 25 mg BID PO Last administered on 12/08/18 10:52; Admin Dose 25 MG; Start 12/07/18 at 21:00 Nifedipine (Procardia Xl) 30 mg BID PO Last administered on 12/08/18 10:51; Admin Dose 30 MG; Start 12/07/18 at 21:00 Losartan Potassium (Cozaar) 50 mg DAILY PO Last administered on 12/08/18 10:52; Admin Dose 50 MG; Start 12/08/18 at 09:00 Albuterol/ Ipratropium (Duoneb) 3 ml Q2H RESP THERAPY PRN HHN WHEEZING Last administered on 12/07/18 20:21; Admin Dose 3 ML; Start 12/07/18 at 20:30 Sertraline HCl (Zoloft) 100 mg DAILY PO Last administered on 12/08/18 10:51; Admin Dose 100 MG; Start 12/08/18 at 09:00 Labetalol HCl (Labetalol) 10 mg Q4H PRN IV ELEVATED SYSTOLIC BP Last administered on 12/08/18 03:18; Admin Dose 10 MG; Start 12/08/18 at 03:30 Hydralazine HCl (Apresoline) 10 mg Q4H PRN IV ELEVATED SYSTOLIC BP Last administered on 12/08/18 04:17; Admin Dose 10 MG; Start 12/08/18 at 03:30 Docusate Sodium (Colace) 100 mg BID PO ; Start 12/08/18 at 21:00 MONIQUE FERNANDEZ NP Dec 08, 2018 12:20
--- NOTE | 2018-12-08 13:45 | CONS ---
Assessment/Plan Cardiology NYHA: III Heart Failure Type: Acute on Chronic Heart Failure Type: Systolic Assessment/Plan Hospital Course (Demo Recall) Assessment: Hypertensive urgency - blood pressures now controlled on oral medications Acute on chronic systolic heart failure Cardiomyopathy, LVEF 35% Hypertension Dyslipidemia Psychiatric disorders Amphetamine use Medication noncompliance Recommendations: -continue Lasix 40mg IV daily -change metoprolol to carvedilol 6.25mg BID (for systolic heart failure) -increase losartan to 50mg BID -discontinue nifedipine -continue aspirin 81mg daily -continue statin -will eventually need coronary evaluation if he proves to be compliant with medications and abstains from illicit drug use Consultation Date/Type/Reason Admit Date/Time Dec 07, 2018 at 10:06 Type of Consult Cardiology Reason for Consultation congestive heart failure Date/Time of Note DATE: 12/08/18 TIME: 13:38 Hx of Present Illness The patient is a 53 year-old male with chronic systolic heart failure who presented with shortness of breath and bilateral lower extremity edema. His initial blood pressure was up to 216/134 and he was also in decompensated heart failure. He has a history of hypertension, but reports that he has not been taking his medications because he has unable to get them EKG showed sinus tachycardia, left axis deviation, and left ventricular hypertrophy with repolarization abnormalities. Troponins have been in the normal range and BNP elevated at 4700. Urine toxicology was positive for amphetamines. 14 point review of systems negative other than per HPI. Past Medical History Chronic systolic heart failure Cardiomyopathy, LVEF 35% Hypertension Dyslipidemia Psychiatric disorders Home Meds Active Scripts Hydrocodone/Acetaminophen ([place] 5-325 Tablet) 1 Each Tablet, 1 TAB PO Q6H, #20 TAB Prov:BETHANY WEINSTEIN [employer] 06/27/17 Ibuprofen* (Motrin*) 600 Mg Tab, 600 MG PO Q6H PRN for PAIN AND OR ELEVATED TEMP, #30 TAB Prov:BETHANY WEINSTEIN [employer] 06/27/17 Reported Medications Atorvastatin Calcium* (Atorvastatin Calcium*) Unknown Strength Tablet, PO QHS, #30 TAB 06/26/17 Losartan-Hydrochlorothiazide (Losartan-HCTZ) Unknown Strength Tab, PO DAILY, TAB 06/26/17 Lamotrigine* (Lamictal* XR) 25 Mg Tab.er.24, 25 MG PO DAILY 09/06/12 Olanzapine (Zyprexa) 2.5 Mg Tablet, 2.5 MG PO DAILY 09/06/12 Metoprolol Succinate* (Toprol XL*) 25 Mg Tab.sr.24h, 25 MG PO DAILY 09/06/12 Atorvastatin (Lipitor) 10 Mg Tablet, 10 MG PO DAILY 09/06/12 Aspirin* (Aspirin* EC) 81 Mg Tablet.dr, 81 MG PO DAILY 09/06/12 Fluoxetine Hcl* (Fluoxetine Hcl*) 20 Mg Capsule, 20 MG PO BID 09/06/12 Medications Current Medications Lorazepam (Ativan) 0.5 mg Q8H PRN PO .ANXIETY; Start 12/07/18 at 16:00 Ondansetron HCl (Zofran Inj) 4 mg Q6H PRN IV NAUSEA/VOMITING; Start 12/07/18 at 16:00 Aspirin (Aspirin) 81 mg DAILY PO Last administered on 12/08/18 10:52; Admin Dose 81 MG; Start 12/08/18 at 09:00 Furosemide (Lasix) 40 mg DAILY IV Last administered on 12/08/18at 10:51; Admin Dose 40 MG; Start 12/08/18 at 09:00 Nitroglycerin (Nitroglycerin (Sl Tab) 0.4 Mg) 1 tab Q5M PRN SL .CHEST PAIN; Start 12/07/18 at 16:00 Acetaminophen (Tylenol Tab) 650 mg Q6H PRN PO .PAIN 1-3 OR TEMP; Start 12/07/18 at 16:00 Zolpidem Tartrate (Ambien) 5 mg QHS PRN PO .INSOMNIA; Start 12/07/18 at 16:00 Famotidine (Pepcid) 20 mg Q12 PO Last administered on 12/08/18at 10:51; Admin Dose 20 MG; Start 12/07/18 at 21:00 Enoxaparin Sodium (Lovenox) 40 mg DAILY SC Last administered on 12/08/18 11:01; Admin Dose 40 MG; Start 12/08/18 at 09:00 Atorvastatin Calcium (Lipitor) 10 mg QHS PO Last administered on 12/07/18 20:53; Admin Dose 10 MG; Start 12/07/18 at 21:00 Metoprolol Succinate (Toprol Xl) 25 mg BID PO Last administered on 12/08/18 10:52; Admin Dose 25 MG; Start 12/07/18 at 21:00 Nifedipine (Procardia Xl) 30 mg BID PO Last administered on 12/08/18 10:51; Admin Dose 30 MG; Start 12/07/18 at 21:00 Losartan Potassium (Cozaar) 50 mg DAILY PO Last administered on 12/08/18 10:52; Admin Dose 50 MG; Start 12/08/18 at 09:00 Albuterol/ Ipratropium (Duoneb) 3 ml Q2H RESP THERAPY PRN HHN WHEEZING Last administered on 12/07/18at 20:21; Admin Dose 3 ML; Start 12/07/18 at 20:30 Sertraline HCl (Zoloft) 100 mg DAILY PO Last administered on 12/08/18 10:51; Admin Dose 100 MG; Start 12/08/18 at 09:00 Labetalol HCl (Labetalol) 10 mg Q4H PRN IV ELEVATED SYSTOLIC BP Last administered on 12/08/18 03:18; Admin Dose 10 MG; Start 12/08/18 at 03:30 Hydralazine HCl (Apresoline) 10 mg Q4H PRN IV ELEVATED SYSTOLIC BP Last administered on 12/08/18 04:17; Admin Dose 10 MG; Start 12/08/18 at 03:30 Docusate Sodium (Colace) 100 mg BID PO ; Start 12/08/18 at 21:00 Allergies: Coded Allergies: No Known Allergy (Unverified , 12/07/18) Past Surgical History Past Surgical Hx: no surgical history Social History Smoking Status: Current every day smoker Drug Use: other (methamphetamine) Exam/Review of Systems Vital Signs Vitals Vital Signs Date Temp Pulse Resp B/P (MAP) Pulse Ox O2 O2 Flow FiO2 Time Delivery Rate 12/08/18 97.9 90 20 128/81 97 Nasal 12:00 (97) Cannula 12/08/18 2.0 10:41 12/07/18 98 20:22 Intake and Output 12/07/18 12/07/18 12/08/18 1515:00 23:00 07:00 IntakeIntake Total 268 ml OutputOutput Total 3000 ml 1000 ml BalanceBalance -3000 ml -732 ml Exam Constitutional: alert, well developed Psych: no complaints, nl mood/affect Head: normocephalic, atraumatic Eyes: nl conjunctiva, nl lids ENMT: nl external ears & nose, nl lips & teeth Neck: supple, non-tender, jvd Respiratory: diminished breath sounds Cardiovascular: regular rate and rhythm Gastrointestinal: soft, non-tender Musculoskeletal: nl extremities to inspection Extremities: edema; No cyanosis, No clubbing Labs Result Diagram: 12/08/18 0520 12/08/18 0520 Results 24hrs Laboratory Tests Test 12/07/18 14:00 12/07/18 16:17 12/07/18 22:00 12/07/18 22:11 Blood Gas Blood arterial Blood arterial Specimen Source Arterial Blood 12/07/2018 2:58: 12/07/2018 8:00: Date Drawn 25 PM 28 PM Arterial Blood 7.409 7.398 pH (Temp corrected) Arterial Blood 43.3 44.9 pCO2 (Temp correct) Arterial Blood 81.6 75.3 L pO2 (Temp corrected) Arterial Blood 26.8 H 27.1 H HCO3 Arterial Blood 1.8 1.8 Base Excess Arterial Blood 95.6 94.3 L Oxygen Saturatio n Akl Test ACCEPTAB ACCEPTAB Arterial Blood Right Radial Left Radial Gas Puncture Site Arterial 0.8 0.6 Blood Carboxyhem oglobin Arterial Blood 0.3 0.3 Methemoglobin Blood Gas A-a O2 66.9 H 64.1 H Differential Oxyhemoglobin 94.5 93.5 Percent Blood Gas 37.0 37.0 Temperature Blood Gas 14.0 Respiration Rate Blood Gas Actual 20 16 Respiration Rate Blood Gas MASK - BIPAP NASAL CANNULA Modality FiO2 28.0 27.0 Blood Gas 10 Pressure Support Blood Gas 15/5 IPAP/EPAP Ratio Blood Gas Myrna CONNOLLY Notified Whom Blood Gas 12/07/2018 3:07: 12/07/2018 8:11: Notified Time 05 PM 05 PM Creatine Kinase 79 64 Creatine Kinase 3.1 3.8 Index Creatinine 2.48 H 2.44 H Kinase MB (Mass) Troponin I 0.014 0.019 Test 12/08/18 05:13 12/08/18 05:20 Hemoglobin A1c 5.8 Triglycerides 88 Level Cholesterol 152 Level LDL Cholesterol, 96 Calculated HDL Cholesterol 38 Cholesterol/HDL 4.0 Ratio White Blood 9.2 Count Red Blood Count 5.47 Hemoglobin 13.5 L Hematocrit 43.9 Mean Corpuscular 80.3 L Volume Mean Corpuscular 24.7 L Hemoglobin Mean Corpuscular 30.8 L Hemoglobin [place] nt Red Cell 13.9 Distribution Width Platelet Count 281 Mean Platelet 11.0 H Volume Immature 0.700 H Granulocytes % Neutrophils % 89.7 H Lymphocytes % 6.6 L Monocytes % 2.9 Eosinophils % 0.0 Basophils % 0.1 Nucleated Red 0.0 Blood Cells % Immature 0.060 H Granulocytes # Neutrophils # 8.3 H Lymphocytes # 0.6 L Monocytes # 0.3 Eosinophils # 0.0 Basophils # 0.0 Nucleated Red 0.0 Blood Cells # Sodium Level 138 Potassium Level 4.9 Chloride Level 103 Carbon Dioxide 22 Level Anion Gap 13 Blood Urea 21 H Nitrogen Creatinine 0.76 Est Glomerular > 60 Filtrat Rate mL/min Glucose Level 195 Calcium Level 8.8 Magnesium Level 2.0 Medications Medications Current Medications Lorazepam (Ativan) 0.5 mg Q8H PRN PO .ANXIETY; Start 12/07/18 at 16:00 Ondansetron HCl (Zofran Inj) 4 mg Q6H PRN IV NAUSEA/VOMITING; Start 12/07/18 at 16:00 Aspirin (Aspirin) 81 mg DAILY PO Last administered on 12/08/18at 10:52; Admin Dose 81 MG; Start 12/08/18 at 09:00 Furosemide (Lasix) 40 mg DAILY IV Last administered on 12/08/18at 10:51; Admin Dose 40 MG; Start 12/08/18 at 09:00 Nitroglycerin (Nitroglycerin (Sl Tab) 0.4 Mg) 1 tab Q5M PRN SL .CHEST PAIN; Start 12/07/18 at 16:00 Acetaminophen (Tylenol Tab) 650 mg Q6H PRN PO .PAIN 1-3 OR TEMP; Start 12/07/18 at 16:00 Zolpidem Tartrate (Ambien) 5 mg QHS PRN PO .INSOMNIA; Start 12/07/18 at 16:00 Famotidine (Pepcid) 20 mg Q12 PO Last administered on 12/08/18at 10:51; Admin Dose 20 MG; Start 12/07/18 at 21:00 Enoxaparin Sodium (Lovenox) 40 mg DAILY SC Last administered on 12/08/18at 11:01; Admin Dose 40 MG; Start 12/08/18 at 09:00 Atorvastatin Calcium (Lipitor) 10 mg QHS PO Last administered on 12/07/18 20:53; Admin Dose 10 MG; Start 12/07/18 at 21:00 Metoprolol Succinate (Toprol Xl) 25 mg BID PO Last administered on 12/08/18 10:52; Admin Dose 25 MG; Start 12/07/18 at 21:00 Nifedipine (Procardia Xl) 30 mg BID PO Last administered on 12/08/18 10:51; Admin Dose 30 MG; Start 12/07/18 at 21:00 Losartan Potassium (Cozaar) 50 mg DAILY PO Last administered on 12/08/18 10:52; Admin Dose 50 MG; Start 12/08/18 at 09:00 Albuterol/ Ipratropium (Duoneb) 3 ml Q2H RESP THERAPY PRN HHN WHEEZING Last administered on 12/07/18 20:21; Admin Dose 3 ML; Start 12/07/18 at 20:30 Sertraline HCl (Zoloft) 100 mg DAILY PO Last administered on 12/08/18 10:51; Admin Dose 100 MG; Start 12/08/18 at 09:00 Labetalol HCl (Labetalol) 10 mg Q4H PRN IV ELEVATED SYSTOLIC BP Last administered on 12/08/18 03:18; Admin Dose 10 MG; Start 12/08/18 at 03:30 Hydralazine HCl (Apresoline) 10 mg Q4H PRN IV ELEVATED SYSTOLIC BP Last administered on 12/08/18 04:17; Admin Dose 10 MG; Start 12/08/18 at 03:30 Docusate Sodium (Colace) 100 mg BID PO ; Start 12/08/18 at 21:00 JUVENCIO LYNN MD Dec 08, 2018 13:45
[2018-12-08] MEDS: ATORVASTATIN 10 MG TAB PO SCH (21:01)
[2018-12-08] MEDS: LOSARTAN 50 MG TAB PO SCH (21:02)
[2018-12-09] VITALS (9 sets, daily range): BP systolic 149–187; BP diastolic 66–98; PULSE 82–100; RESP 18–20
[2018-12-09] MEDS: DOCUSATE SODIUM 100 MG CAP PO SCH ×2 (08:04→20:31)
[2018-12-09] MEDS: SERTRALINE 100 MG TAB PO SCH (08:05)
[2018-12-09] MEDS: FAMOTIDINE 20 MG TAB PO SCH ×2 (08:05→20:32)
[2018-12-09] MEDS: ASPIRIN 81 MG TAB PO SCH (08:05)
[2018-12-09] MEDS: LOSARTAN 50 MG TAB PO SCH ×2 (08:06→20:39)
[2018-12-09] MEDS: FUROSEMIDE 40 MG INJ IV SCH (08:07)
[2018-12-09] MEDS: ENOXAPARIN 40 MG/0.4 ML SYG SC SCH (08:19)
[2018-12-09] MEDS: ALBUTEROL/IPRATROPIUM (NEB) 3 ML AMP HHN PRN ×2 (08:20→15:05)
[2018-12-09] MEDS: THIAMINE 100 MG TAB PO SCH (14:55)
[2018-12-09] MEDS ORDERED: NICOTINE (14 MG/24 HR) PATCH TRANSDERM PRN (15:00)
--- NOTE | 2018-12-09 16:39 | PN ---
Date/Time of Note Date/Time of Note DATE: 12/09/18 TIME: 16:36 Assessment/Plan VTE Prophylaxis Risk score (from Ns)>0 risk: 7 SCD applied (from Ns): No SCD contraindicated: low risk/ambulating Pharmacological prophylaxis: LMWH Lines/Catheters IV C[facility]ter Type (from [facility] Saline Lock Urinary Cath still in place: No Assessment/Plan Hospital Course Assessment and plan 1. Acute hypoxic respiratory failure stable resolving 2. Acute decompensated systolic CHF, stable improved 3. Chronic hypertension, consider stress test when stable may be Tuesday 4. Chronic tobacco abuse status post counseling offered patch 5. Chronic substance abuse: Methamphetamine 5. Chronic anemia? 6. RODNEY risk consider outpatient CPAP/ testing 7. Dyslipidemia 8. Bipolar 9. PTSD 10. COPD? 11. Bronchitis? Subjective: No distress dyspnea fever. Edema improved. Has some dyspnea with wheezing. Objective: Vital signs stable Physical exam No pallor JVD thick neck Regular no murmur rub Diminished scattered wheeze Obese no rigidity rebound guarding huge pannus No edema/Homans` Result Diagram: 12/09/18 0557 12/09/18 0559 Results 24hrs Laboratory Tests Test 12/09/18 05:57 12/09/18 05:59 White Blood Count 13.7 #H Red Blood Count 5.75 Hemoglobin 14.2 Hematocrit 46.3 Mean Corpuscular Volume 80.5 L Mean Corpuscular Hemoglobin 24.7 L Mean Corpuscular Hemoglobin Concent 30.7 L Red Cell Distribution Width 14.2 Platelet Count 346 # Mean Platelet Volume 10.8 H Immature Granulocytes % 0.400 Neutrophils % 72.8 Lymphocytes % 17.3 Monocytes % 8.5 Eosinophils % 0.4 Basophils % 0.6 Nucleated Red Blood Cells % 0.0 Immature Granulocytes # 0.060 H Neutrophils # 10.0 H Lymphocytes # 2.4 Monocytes # 1.2 H Eosinophils # 0.1 Basophils # 0.1 Nucleated Red Blood Cells # 0.0 Sodium Level 140 Potassium Level 4.6 Chloride Level 105 Carbon Dioxide Level 28 Anion Gap 7 Blood Urea Nitrogen 32 #H Creatinine 0.93 Est Glomerular Filtrat Rate mL/min > 60 Glucose Level 103 # Calcium Level 8.9 Phosphorus Level 4.8 Magnesium Level 2.1 B-Type Natriuretic Peptide 1190 H Exam/Review of Systems Exam Vitals Vital Signs Date Temp Pulse Resp B/P (MAP) Pulse Ox O2 O2 Flow FiO2 Time Delivery Rate 12/09/18 85 16:26 12/09/18 98.7 18 176/85 97 15:18 (115) 12/09/18 2.0 15:09 12/09/18 Nasal 15:08 Cannula 12/07/18 98 20:22 Intake and Output 12/08/18 12/08/18 12/09/18 1414:59 22:59 06:59 IntakeIntake Total 1000 ml 590 ml OutputOutput Total 2700 ml 850 ml BalanceBalance -1700 ml -260 ml Results Results 24hrs Laboratory Tests Test 12/09/18 05:57 12/09/18 05:59 White Blood Count 13.7 #H Red Blood Count 5.75 Hemoglobin 14.2 Hematocrit 46.3 Mean Corpuscular Volume 80.5 L Mean Corpuscular Hemoglobin 24.7 L Mean Corpuscular Hemoglobin Concent 30.7 L Red Cell Distribution Width 14.2 Platelet Count 346 # Mean Platelet Volume 10.8 H Immature Granulocytes % 0.400 Neutrophils % 72.8 Lymphocytes % 17.3 Monocytes % 8.5 Eosinophils % 0.4 Basophils % 0.6 Nucleated Red Blood Cells % 0.0 Immature Granulocytes # 0.060 H Neutrophils # 10.0 H Lymphocytes # 2.4 Monocytes # 1.2 H Eosinophils # 0.1 Basophils # 0.1 Nucleated Red Blood Cells # 0.0 Sodium Level 140 Potassium Level 4.6 Chloride Level 105 Carbon Dioxide Level 28 Anion Gap 7 Blood Urea Nitrogen 32 #H Creatinine 0.93 Est Glomerular Filtrat Rate mL/min > 60 Glucose Level 103 # Calcium Level 8.9 Phosphorus Level 4.8 Magnesium Level 2.1 B-Type Natriuretic Peptide 1190 H Medications Medication Current Medications Lorazepam (Ativan) 0.5 mg Q8H PRN PO .ANXIETY; Start 12/07/18 at 16:00 Ondansetron HCl (Zofran Inj) 4 mg Q6H PRN IV NAUSEA/VOMITING; Start 12/07/18 at 16:00 Aspirin (Aspirin) 81 mg DAILY PO Last administered on 12/09/18at 08:05; Admin Dose 81 MG; Start 12/08/18 at 09:00 Furosemide (Lasix) 40 mg DAILY IV Last administered on 12/09/18at 08:07; Admin Dose 40 MG; Start 12/08/18 at 09:00 Nitroglycerin (Nitroglycerin (Sl Tab) 0.4 Mg) 1 tab Q5M PRN SL .CHEST PAIN; Start 12/07/18 at 16:00 Acetaminophen (Tylenol Tab) 650 mg Q6H PRN PO .PAIN 1-3 OR TEMP; Start 12/07/18 at 16:00 Zolpidem Tartrate (Ambien) 5 mg QHS PRN PO .INSOMNIA; Start 12/07/18 at 16:00 Famotidine (Pepcid) 20 mg Q12 PO Last administered on 12/09/18at 08:05; Admin Dose 20 MG; Start 12/07/18 at 21:00 Enoxaparin Sodium (Lovenox) 40 mg DAILY SC Last administered on 12/09/18at 08:19; Admin Dose 40 MG; Start 12/08/18 at 09:00 Atorvastatin Calcium (Lipitor) 10 mg QHS PO Last administered on 12/08/18at 21:01; Admin Dose 10 MG; Start 12/07/18 at 21:00 Albuterol/ Ipratropium (Duoneb) 3 ml Q2H RESP THERAPY PRN HHN WHEEZING Last administered on 12/09/18at 15:05; Admin Dose 3 ML; Start 12/07/18 at 20:30 Sertraline HCl (Zoloft) 100 mg DAILY PO Last administered on 12/09/18at 08:05; Admin Dose 100 MG; Start 12/08/18 at 09:00 Labetalol HCl (Labetalol) 10 mg Q4H PRN IV ELEVATED SYSTOLIC BP Last administered on 12/08/18at 03:18; Admin Dose 10 MG; Start 12/08/18 at 03:30 Hydralazine HCl (Apresoline) 10 mg Q4H PRN IV ELEVATED SYSTOLIC BP Last administered on 12/08/18at 04:17; Admin Dose 10 MG; Start 12/08/18 at 03:30 Docusate Sodium (Colace) 100 mg BID PO Last administered on 12/09/18at 08:04; Admin Dose 100 MG; Start 12/08/18 at 21:00 Losartan Potassium (Cozaar) 50 mg BID PO Last administered on 12/09/18at 08:06; Admin Dose 50 MG; Start 12/08/18 at 21:00 Carvedilol (Coreg) 6.25 mg BID PO Last administered on 12/09/18at 08:05; Admin Dose 6.25 MG; Start 12/08/18 at 21:00 Olanzapine (Zyprexa) 2.5 mg DAILY PO ; Start 12/10/18 at 09:00 Miscellaneous Information 25 mg DAILY PO ; Start 12/10/18 at 09:00; Status UNV Thiamine HCl (Vitamin B1) 100 mg DAILY PO Last administered on 12/09/18at 14:55; Admin Dose 100 MG; Start 12/09/18 at 14:30 Nicotine (Nicoderm 14 Mg/ 24hr) 1 patch DAILY PRN TRANSDERM CONTROL WITHDRAWAL SYMPTOMS; Start 12/09/18 at 15:00 Fluoxetine HCl (Prozac) 20 mg BID PO ; Start 12/09/18 at 21:00 ZACH WOOD MD Dec 09, 2018 16:39
[2018-12-09] MEDS ORDERED: NIFEdipine (XL) 30 MG TAB PO ONE (17:00)
[2018-12-09] MEDS: LAMOTRIGINE 25 MG TAB PO SCH (18:12)
[2018-12-09] MEDS: predniSONE 20 MG TAB PO SCH (18:13)
[2018-12-09] MEDS: ATORVASTATIN 10 MG TAB PO SCH (20:31)
[2018-12-09] MEDS: FLUOXETINE 20 MG CAP PO SCH (20:31)
[2018-12-10] VITALS (9 sets, daily range): BP systolic 106–190; BP diastolic 62–103; PULSE 80–102; RESP 14–21
[2018-12-10] MEDS: THIAMINE 100 MG TAB PO SCH (08:20)
[2018-12-10] MEDS: OLANZAPINE 2.5 MG TAB PO SCH (08:20)
[2018-12-10] MEDS: FAMOTIDINE 20 MG TAB PO SCH ×2 (08:20→20:55)
[2018-12-10] MEDS: SERTRALINE 100 MG TAB PO SCH (08:20)
[2018-12-10] MEDS: predniSONE 20 MG TAB PO SCH (08:20)
[2018-12-10] MEDS: FLUOXETINE 20 MG CAP PO SCH ×2 (08:21→22:31)
[2018-12-10] MEDS: ASPIRIN 81 MG TAB PO SCH (08:21)
[2018-12-10] MEDS: LAMOTRIGINE 25 MG TAB PO SCH (08:21)
[2018-12-10] MEDS: DOCUSATE SODIUM 100 MG CAP PO SCH ×2 (08:21→20:55)
[2018-12-10] MEDS: LOSARTAN 50 MG TAB PO SCH ×2 (08:22→20:56)
[2018-12-10] MEDS: FUROSEMIDE 40 MG INJ IV SCH (08:25)
[2018-12-10] MEDS: ENOXAPARIN 40 MG/0.4 ML SYG SC SCH (08:32)
[2018-12-10] MEDS: ALBUTEROL/IPRATROPIUM (NEB) 3 ML AMP HHN PRN (08:35)
[2018-12-10] MEDS ORDERED: LAMOTRIGINE 25 MG PO SCH (09:00)
[2018-12-10] MEDS: hydrALAzine 20 MG INJ IV PRN (12:34)
--- NOTE | 2018-12-10 12:35 | PN ---
Date/Time of Note Date/Time of Note DATE: 12/10/18 TIME: 12:33 Assessment/Plan VTE Prophylaxis Risk score (from Ns)>0 risk: 8 SCD applied (from Ns): Yes SCD contraindicated: low risk/ambulating Pharmacological prophylaxis: LMWH Lines/Catheters IV Catheter Type (from Nrs): Saline Lock Urinary Cath still in place: No Assessment/Plan Hospital Course A/P 1. Acute hypoxic respiratory failure stable resolving 2. Acute decompensated systolic CHF, stable improved 3. Chronic hypertension, consider stress test when stable, maybe Tuesday 4. Chronic tobacco abuse sp counseling offered patch 5. Chronic substance abuse: Methamphetamine 5. Chronic anemia? 6. RODNEY risk consider outpatient CPAP/ testing 7. Dyslipidemia 8. Bipolar 9. PTSD 10. COPD? 11. Bronchitis? Subjective: 12/09 no distress dyspnea fever. Edema improved. Has some dyspnea with wheezing. 12/10 dyspnea a bit better. No chest pain diaphoresis fever Objective: Vital signs stable Physical exam No pallor/ JVD thick neck Regular no murmur rub Diminished scattered/faint wheeze Obese nt nd; no r/r/g No edema/Homans` Result Diagram: 12/10/18 0519 12/10/18 0519 Results 24hrs Laboratory Tests Test 12/10/18 05:19 White Blood Count 8.9 # Red Blood Count 6.12 H Hemoglobin 15.0 Hematocrit 49.0 Mean Corpuscular Volume 80.1 L Mean Corpuscular Hemoglobin 24.5 L Mean Corpuscular Hemoglobin Concent 30.6 L Red Cell Distribution Width 13.7 Platelet Count 347 Mean Platelet Volume 10.5 H Immature Granulocytes % 0.400 Neutrophils % 84.6 H Lymphocytes % 9.7 L Monocytes % 5.1 Eosinophils % 0.0 Basophils % 0.2 Nucleated Red Blood Cells % 0.0 Immature Granulocytes # 0.040 H Neutrophils # 7.5 Lymphocytes # 0.9 Monocytes # 0.5 Eosinophils # 0.0 Basophils # 0.0 Nucleated Red Blood Cells # 0.0 Prothrombin Time 13.1 Prothrombin Time Ratio 1.0 INR International Normalized Ratio 0.98 Sodium Level 140 Potassium Level 4.3 Chloride Level 99 Carbon Dioxide Level 29 Anion Gap 12 Blood Urea Nitrogen 27 H Creatinine 0.68 Est Glomerular Filtrat Rate mL/min > 60 Glucose Level 130 Calcium Level 9.0 Phosphorus Level 4.4 Magnesium Level 2.1 Exam/Review of Systems Exam Vitals Vital Signs Date Temp Pulse Resp B/P (MAP) Pulse Ox O2 O2 Flow FiO2 Time Delivery Rate 12/10/18 98.5 80 21 190/103 94 12:25 (132) 12/10/18 Nasal 2.0 95 08:37 Cannula Intake and Output 12/09/18 12/09/18 12/10/18 1515:00 23:00 07:00 IntakeIntake Total 1400 ml OutputOutput Total 5 ml BalanceBalance 1395 ml Results Results 24hrs Laboratory Tests Test 12/10/18 05:19 White Blood Count 8.9 # Red Blood Count 6.12 H Hemoglobin 15.0 Hematocrit 49.0 Mean Corpuscular Volume 80.1 L Mean Corpuscular Hemoglobin 24.5 L Mean Corpuscular Hemoglobin Concent 30.6 L Red Cell Distribution Width 13.7 Platelet Count 347 Mean Platelet Volume 10.5 H Immature Granulocytes % 0.400 Neutrophils % 84.6 H Lymphocytes % 9.7 L Monocytes % 5.1 Eosinophils % 0.0 Basophils % 0.2 Nucleated Red Blood Cells % 0.0 Immature Granulocytes # 0.040 H Neutrophils # 7.5 Lymphocytes # 0.9 Monocytes # 0.5 Eosinophils # 0.0 Basophils # 0.0 Nucleated Red Blood Cells # 0.0 Prothrombin Time 13.1 Prothrombin Time Ratio 1.0 INR International Normalized Ratio 0.98 Sodium Level 140 Potassium Level 4.3 Chloride Level 99 Carbon Dioxide Level 29 Anion Gap 12 Blood Urea Nitrogen 27 H Creatinine 0.68 Est Glomerular Filtrat Rate mL/min > 60 Glucose Level 130 Calcium Level 9.0 Phosphorus Level 4.4 Magnesium Level 2.1 Medications Medication Current Medications Lorazepam (Ativan) 0.5 mg Q8H PRN PO .ANXIETY; Start 12/07/18 at 16:00 Ondansetron HCl (Zofran Inj) 4 mg Q6H PRN IV NAUSEA/VOMITING; Start 12/07/18 at 16:00 Aspirin (Aspirin) 81 mg DAILY PO Last administered on 12/10/18at 08:21; Admin Dose 81 MG; Start 12/08/18 at 09:00 Furosemide (Lasix) 40 mg DAILY IV Last administered on 12/10/18at 08:25; Admin Dose 40 MG; Start 12/08/18 at 09:00 Nitroglycerin (Nitroglycerin (Sl Tab) 0.4 Mg) 1 tab Q5M PRN SL .CHEST PAIN; Start 12/07/18 at 16:00 Acetaminophen (Tylenol Tab) 650 mg Q6H PRN PO .PAIN 1-3 OR TEMP; Start 12/07/18 at 16:00 Zolpidem Tartrate (Ambien) 5 mg QHS PRN PO .INSOMNIA; Start 12/07/18 at 16:00 Famotidine (Pepcid) 20 mg Q12 PO Last administered on 12/10/18 08:20; Admin Dose 20 MG; Start 12/07/18 at 21:00 Enoxaparin Sodium (Lovenox) 40 mg DAILY SC Last administered on 12/10/18 08:32; Admin Dose 40 MG; Start 12/08/18 at 09:00 Atorvastatin Calcium (Lipitor) 10 mg QHS PO Last administered on 12/09/18 20:31; Admin Dose 10 MG; Start 12/07/18 at 21:00 Albuterol/ Ipratropium (Duoneb) 3 ml Q2H RESP THERAPY PRN HHN WHEEZING Last administered on 12/10/18 08:35; Admin Dose 3 ML; Start 12/07/18 at 20:30 Sertraline HCl (Zoloft) 100 mg DAILY PO Last administered on 12/10/18 08:20; Admin Dose 100 MG; Start 12/08/18 at 09:00 Labetalol HCl (Labetalol) 10 mg Q4H PRN IV ELEVATED SYSTOLIC BP Last administered on 12/08/18 03:18; Admin Dose 10 MG; Start 12/08/18 at 03:30 Hydralazine HCl (Apresoline) 10 mg Q4H PRN IV ELEVATED SYSTOLIC BP Last administered on 12/08/18 04:17; Admin Dose 10 MG; Start 12/08/18 at 03:30 Docusate Sodium (Colace) 100 mg BID PO Last administered on 12/10/18 08:21; Admin Dose 100 MG; Start 12/08/18 at 21:00 Losartan Potassium (Cozaar) 50 mg BID PO Last administered on 12/10/18 08:22; Admin Dose 50 MG; Start 12/08/18 at 21:00 Carvedilol (Coreg) 6.25 mg BID PO Last administered on 12/10/18 08:21; Admin Dose 6.25 MG; Start 12/08/18 at 21:00 Olanzapine (Zyprexa) 2.5 mg DAILY PO Last administered on 12/10/18 08:20; Admin Dose 2.5 MG; Start 12/10/18 at 09:00 Thiamine HCl (Vitamin B1) 100 mg DAILY PO Last administered on 12/10/18 08:20; Admin Dose 100 MG; Start 12/09/18 at 14:30 Nicotine (Nicoderm 14 Mg/ 24hr) 1 patch DAILY PRN TRANSDERM CONTROL WITHDRAWAL SYMPTOMS; Start 12/09/18 at 15:00 Fluoxetine HCl (Prozac) 20 mg BID PO Last administered on 12/10/18 08:21; Admin Dose 20 MG; Start 12/09/18 at 21:00 Prednisone (Prednisone) 60 mg DAILY PO Last administered on 12/10/18 08:20; Admin Dose 60 MG; Start 12/09/18 at 17:00 Lamotrigine (Lamictal) 25 mg DAILY PO Last administered on 12/10/18 08:21; Admin Dose 25 MG; Start 12/09/18 at 17:30 ZACH WOOD MD Dec 10, 2018 12:35
[2018-12-10] MEDS: ATORVASTATIN 10 MG TAB PO SCH (20:55)
[2018-12-11 08:00] VITALS: BP 171/95; PULSE 88; RESP 18
[2018-12-11] MEDS: LOSARTAN 50 MG TAB PO SCH ×2 (09:00→20:09)
[2018-12-11] MEDS: OLANZAPINE 2.5 MG TAB PO SCH (09:00)
[2018-12-11] MEDS: FUROSEMIDE 40 MG INJ IV SCH (09:00)
[2018-12-11] MEDS: FLUOXETINE 20 MG CAP PO SCH ×2 (09:00→20:09)
[2018-12-11] MEDS: predniSONE 20 MG TAB PO SCH (09:00)
[2018-12-11] MEDS: SERTRALINE 100 MG TAB PO SCH (09:00)
[2018-12-11] MEDS: ASPIRIN 81 MG TAB PO SCH (09:00)
[2018-12-11] MEDS: LAMOTRIGINE 25 MG TAB PO SCH (09:00)
[2018-12-11] MEDS: FAMOTIDINE 20 MG TAB PO SCH ×2 (09:00→20:09)
[2018-12-11] MEDS: DOCUSATE SODIUM 100 MG CAP PO SCH ×2 (09:00→20:09)
[2018-12-11] MEDS: THIAMINE 100 MG TAB PO SCH (09:00)
[2018-12-11] MEDS: ENOXAPARIN 40 MG/0.4 ML SYG SC SCH (09:00)
[2018-12-11] MEDS ORDERED: REGADENOSON 0.4 MG/5 ML SYG ONE (13:13)
--- NOTE | 2018-12-11 13:27 | CONS ---
Assessment/Plan Cardiology NYHA: III Heart Failure Type: Acute on Chronic Heart Failure Type: Systolic Assessment/Plan Hospital Course (Demo Recall) Assessment: Hypertensive urgency - blood pressures now improved on oral medications Acute on chronic systolic heart failure - improved with blood pressure control and diuresis Cardiomyopathy, LVEF 35% Hypertension Dyslipidemia Psychiatric disorders Amphetamine use Medication noncompliance Recommendations: -change Lasix from IV to PO 40mg daily -increase carvedilol to 12.5mg BID -continue losartan 50mg BID -continue aspirin 81mg daily -continue statin -follow up Lexiscan SPECT results Consultation Date/Type/Reason Admit Date/Time Dec 07, 2018 at 10:06 Initial Consult Date Type of Consult Cardiology Date/Time of Note DATE: 12/11/18 TIME: 13:25 24 HR Interval Summary Free Text/Dictation Lexiscan SPECT performed today. Detailed Summary Additional Comments 14 point review of systems without changes. Exam/Review of Systems Vital Signs Vitals Vital Signs Date Temp Pulse Resp B/P (MAP) Pulse Ox O2 O2 Flow FiO2 Time Delivery Rate 12/11/18 2.0 02:16 12/10/18 102 106/62 22:19 (77) 12/10/18 98.8 18 94 18:57 12/10/18 Nasal 95 08:37 Cannula Intake and Output 12/10/18 12/10/18 12/11/18 1515:00 23:00 07:00 IntakeIntake Total 960 ml 250 ml BalanceBalance 960 ml 250 ml Exam Exam Constitutional: alert, well developed Psych: no complaints, nl mood/affect Head: normocephalic, atraumatic Eyes: nl conjunctiva, nl lids ENMT: nl external ears & nose, nl lips & teeth Neck: supple, non-tender, jvd Respiratory: diminished breath sounds Cardiovascular: regular rate and rhythm Gastrointestinal: soft, non-tender Musculoskeletal: nl extremities to inspection Extremities: edema; No cyanosis, No clubbing Labs Result Diagram: 12/11/18 1024 12/11/18 1024 Results 24hrs Laboratory Tests Test 12/11/18 10:24 White Blood Count 14.3 #H Red Blood Count 6.21 H Hemoglobin 15.3 Hematocrit 49.9 Mean Corpuscular Volume 80.4 L Mean Corpuscular Hemoglobin 24.6 L Mean Corpuscular Hemoglobin Concent 30.7 L Red Cell Distribution Width 14.2 Platelet Count 370 Mean Platelet Volume 10.4 Immature Granulocytes % 0.600 H Neutrophils % 57.6 Lymphocytes % 31.6 Monocytes % 9.2 Eosinophils % 0.5 Basophils % 0.5 Nucleated Red Blood Cells % 0.0 Immature Granulocytes # 0.080 H Neutrophils # 8.2 H Lymphocytes # 4.5 H Monocytes # 1.3 H Eosinophils # 0.1 Basophils # 0.1 Nucleated Red Blood Cells # 0.0 Sodium Level 140 Potassium Level 4.0 Chloride Level 102 Carbon Dioxide Level 24 Anion Gap 14 H Blood Urea Nitrogen 32 H Creatinine 0.79 Est Glomerular Filtrat Rate mL/min > 60 Glucose Level 143 Calcium Level 8.6 Phosphorus Level 5.1 H Magnesium Level 2.0 Medications Medications Current Medications Lorazepam (Ativan) 0.5 mg Q8H PRN PO .ANXIETY; Start 12/07/18 at 16:00 Ondansetron HCl (Zofran Inj) 4 mg Q6H PRN IV NAUSEA/VOMITING; Start 12/07/18 at 16:00 Aspirin (Aspirin) 81 mg DAILY PO Last administered on 12/10/18at 08:21; Admin Dose 81 MG; Start 12/08/18 at 09:00 Furosemide (Lasix) 40 mg DAILY IV Last administered on 12/10/18at 08:25; Admin Dose 40 MG; Start 12/08/18 at 09:00 Nitroglycerin (Nitroglycerin (Sl Tab) 0.4 Mg) 1 tab Q5M PRN SL .CHEST PAIN; Start 12/07/18 at 16:00 Acetaminophen (Tylenol Tab) 650 mg Q6H PRN PO .PAIN 1-3 OR TEMP; Start 12/07/18 at 16:00 Zolpidem Tartrate (Ambien) 5 mg QHS PRN PO .INSOMNIA; Start 12/07/18 at 16:00 Famotidine (Pepcid) 20 mg Q12 PO Last administered on 12/10/18at 20:55; Admin Dose 20 MG; Start 12/07/18 at 21:00 Enoxaparin Sodium (Lovenox) 40 mg DAILY SC Last administered on 12/10/18at 08:32; Admin Dose 40 MG; Start 12/08/18 at 09:00 Atorvastatin Calcium (Lipitor) 10 mg QHS PO Last administered on 12/10/18at 20:55; Admin Dose 10 MG; Start 12/07/18 at 21:00 Albuterol/ Ipratropium (Duoneb) 3 ml Q2H RESP THERAPY PRN HHN WHEEZING Last administered on 12/10/18 08:35; Admin Dose 3 ML; Start 12/07/18 at 20:30 Sertraline HCl (Zoloft) 100 mg DAILY PO Last administered on 12/10/18 08:20; Admin Dose 100 MG; Start 12/08/18 at 09:00 Labetalol HCl (Labetalol) 10 mg Q4H PRN IV ELEVATED SYSTOLIC BP Last administered on 12/08/18 03:18; Admin Dose 10 MG; Start 12/08/18 at 03:30 Hydralazine HCl (Apresoline) 10 mg Q4H PRN IV ELEVATED SYSTOLIC BP Last administered on 12/10/18 12:34; Admin Dose 10 MG; Start 12/08/18 at 03:30 Docusate Sodium (Colace) 100 mg BID PO Last administered on 12/10/18 20:55; Admin Dose 100 MG; Start 12/08/18 at 21:00 Losartan Potassium (Cozaar) 50 mg BID PO Last administered on 12/10/18 20:56; Admin Dose 50 MG; Start 12/08/18 at 21:00 Carvedilol (Coreg) 6.25 mg BID PO Last administered on 12/10/18 20:56; Admin Dose 6.25 MG; Start 12/08/18 at 21:00 Olanzapine (Zyprexa) 2.5 mg DAILY PO Last administered on 12/10/18 08:20; Admin Dose 2.5 MG; Start 12/10/18 at 09:00 Thiamine HCl (Vitamin B1) 100 mg DAILY PO Last administered on 12/10/18 08:20; Admin Dose 100 MG; Start 12/09/18 at 14:30 Nicotine (Nicoderm 14 Mg/ 24hr) 1 patch DAILY PRN TRANSDERM CONTROL WITHDRAWAL SYMPTOMS Last administered on 12/10/18 15:42; Admin Dose 1 PATCH; Start 12/09/18 at 15:00 Fluoxetine HCl (Prozac) 20 mg BID PO Last administered on 12/10/18 22:31; Admin Dose 20 MG; Start 12/09/18 at 21:00 Prednisone (Prednisone) 60 mg DAILY PO Last administered on 12/10/18at 08:20; Admin Dose 60 MG; Start 12/09/18 at 17:00 Lamotrigine (Lamictal) 25 mg DAILY PO Last administered on 12/10/18at 08:21; Admin Dose 25 MG; Start 12/09/18 at 17:30 JUVENCIO LYNN MD Dec 11, 2018 13:27
[2018-12-11 14:00] VITALS: BP 189/118; PULSE 95; RESP 18
[2018-12-11] MEDS: hydrALAzine 20 MG INJ IV PRN (14:24)
[2018-12-11] MEDS: ALBUTEROL/IPRATROPIUM (NEB) 3 ML AMP HHN PRN (14:44)
[2018-12-11 15:00] VITALS: BP 165/84; PULSE 88
[2018-12-11] MEDS ORDERED: PRED20TA PO (16:17)
[2018-12-11] MEDS ORDERED: CARV12.579 PO (16:17)
[2018-12-11] MEDS ORDERED: LOSA50TA2 PO (16:17)
[2018-12-11] MEDS ORDERED: FURO40TA4 PO (16:17)
[2018-12-11] MEDS ORDERED: ADV25050 INHALATION (16:19)
[2018-12-11] MEDS ORDERED: ALBU2.5V3 NEB (16:19)
--- NOTE | 2018-12-11 17:01 | PN ---
Date/Time of Note Date/Time of Note DATE: 12/11/18 TIME: 16:59 Assessment/Plan VTE Prophylaxis Risk score (from [facility])>0 risk: 3 SCD applied (from [facility]): No SCD contraindicated: other Pharmacological prophylaxis: LMWH Lines/Catheters IV Catheter Type (from [facility]): Saline Lock Urinary Cath still in place: No Assessment/Plan Hospital Course SUBJECTIVE: Dyspnea improved. Denies any chest pain. OBJECTIVE: Physical Exam General: Morbidly obese, 53 year-old male lying in bed in no apparent distress. HEENT: Normocephalic, atraumatic. Eyes: Anicteric sclerae, conjunctivae clear. ENT: Nasal septum midline, oral mucosa moist. Neck: Short and obese. Respiratory: Bilaterally diminished breath sounds. No use of accessory muscles of respiration. Bilateral rhonchi. Cardiovascular: S1, S2 heard. Regular rate and rhythm. Abdomen: Soft, nontender, and nondistended. Bowel sounds positive in all 4 quadrants. Genitourinary: Deferred. Extremities: No cyanosis, no clubbing. Bilateral 1+-2+ pedal edema. Neurologic: Cranial nerves II through XII grossly intact. The patient is awake, alert, and oriented. Labs & Vitals per chart ASSESSMENT & PLAN 53-year-old male with comorbidities including cardiomyopathy with ejection fraction of 35%, systolic heart failure, hypertension, dyslipidemia, morbid obesity, nicotine use, methamphetamine abuse, and mood disorder who came to the emergency room with chief complaint of dyspnea who was found to have evidence of underlying CHF exacerbation and was admitted to inpatient setting for further treatment and evaluation. 1. S/P acute respiratory failure. -Hypoxic. -Probably secondary to CHF exacerbation. -Status post noninvasive positive pressure ventilation. -Continue diuresis. -Continue tapering dose of steroids. 2. Acute on chronic CHF exacerbation. -Systolic dysfunction. -Continue diuresis. 3. Cardiomyopathy. -Ejection fraction of 35%. -Continue beta-blockers and ARB's. 4. Hypertensive emergency. -Status post nitroglycerin drip. -Continue beta-blockers and ARBs. 5. Dyslipidemia. -Continue statins. 6. Substance abuse. -Chronic nicotine and methamphetamine user. -Cessation advised. 7. Morbid obesity. -BMI more than 40. -Weight reduction would be advised. 8. Fluids, electrolytes, and nutrition. -Low-cholesterol diet. 9. DVT prophylaxis. -Subcutaneous Lovenox. 10. Plan. -Continue diuretic therapy. -Status post cardiac stress test today that showed severely depressed ejection fraction of 19%. -Await further cardiology recommendations. The patient was seen in collaboration with Dr. Koch. Result Diagram: 12/11/18 1024 12/11/18 1024 Results 24hrs Laboratory Tests Test 12/11/18 10:24 White Blood Count 14.3 #H Red Blood Count 6.21 H Hemoglobin 15.3 Hematocrit 49.9 Mean Corpuscular Volume 80.4 L Mean Corpuscular Hemoglobin 24.6 L Mean Corpuscular Hemoglobin Concent 30.7 L Red Cell Distribution Width 14.2 Platelet Count 370 Mean Platelet Volume 10.4 Immature Granulocytes % 0.600 H Neutrophils % 57.6 Lymphocytes % 31.6 Monocytes % 9.2 Eosinophils % 0.5 Basophils % 0.5 Nucleated Red Blood Cells % 0.0 Immature Granulocytes # 0.080 H Neutrophils # 8.2 H Lymphocytes # 4.5 H Monocytes # 1.3 H Eosinophils # 0.1 Basophils # 0.1 Nucleated Red Blood Cells # 0.0 Sodium Level 140 Potassium Level 4.0 Chloride Level 102 Carbon Dioxide Level 24 Anion Gap 14 H Blood Urea Nitrogen 32 H Creatinine 0.79 Est Glomerular Filtrat Rate mL/min > 60 Glucose Level 143 Calcium Level 8.6 Phosphorus Level 5.1 H Magnesium Level 2.0 Exam/Review of Systems Exam Vitals Vital Signs Date Temp Pulse Resp B/P (MAP) Pulse Ox O2 O2 Flow FiO2 Time Delivery Rate 12/11/18 88 165/84 15:00 (111) 12/11/18 18 95 21 14:45 12/11/18 98.0 Room Air 14:00 12/11/18 2.0 02:16 Intake and Output 12/10/18 12/10/18 12/11/18 1414:59 22:59 06:59 IntakeIntake Total 960 ml 250 ml BalanceBalance 960 ml 250 ml Results Results 24hrs Laboratory Tests Test 12/11/18 10:24 White Blood Count 14.3 #H Red Blood Count 6.21 H Hemoglobin 15.3 Hematocrit 49.9 Mean Corpuscular Volume 80.4 L Mean Corpuscular Hemoglobin 24.6 L Mean Corpuscular Hemoglobin Concent 30.7 L Red Cell Distribution Width 14.2 Platelet Count 370 Mean Platelet Volume 10.4 Immature Granulocytes % 0.600 H Neutrophils % 57.6 Lymphocytes % 31.6 Monocytes % 9.2 Eosinophils % 0.5 Basophils % 0.5 Nucleated Red Blood Cells % 0.0 Immature Granulocytes # 0.080 H Neutrophils # 8.2 H Lymphocytes # 4.5 H Monocytes # 1.3 H Eosinophils # 0.1 Basophils # 0.1 Nucleated Red Blood Cells # 0.0 Sodium Level 140 Potassium Level 4.0 Chloride Level 102 Carbon Dioxide Level 24 Anion Gap 14 H Blood Urea Nitrogen 32 H Creatinine 0.79 Est Glomerular Filtrat Rate mL/min > 60 Glucose Level 143 Calcium Level 8.6 Phosphorus Level 5.1 H Magnesium Level 2.0 Medications Medication Current Medications Lorazepam (Ativan) 0.5 mg Q8H PRN PO .ANXIETY; Start 12/07/18 at 16:00 Ondansetron HCl (Zofran Inj) 4 mg Q6H PRN IV NAUSEA/VOMITING; Start 12/07/18 at 16:00 Aspirin (Aspirin) 81 mg DAILY PO Last administered on 12/10/18at 08:21; Admin Dose 81 MG; Start 12/08/18 at 09:00 Nitroglycerin (Nitroglycerin (Sl Tab) 0.4 Mg) 1 tab Q5M PRN SL .CHEST PAIN; Start 12/07/18 at 16:00 Acetaminophen (Tylenol Tab) 650 mg Q6H PRN PO .PAIN 1-3 OR TEMP; Start 12/07/18 at 16:00 Zolpidem Tartrate (Ambien) 5 mg QHS PRN PO .INSOMNIA; Start 12/07/18 at 16:00 Famotidine (Pepcid) 20 mg Q12 PO Last administered on 12/10/18at 20:55; Admin Dose 20 MG; Start 12/07/18 at 21:00 Enoxaparin Sodium (Lovenox) 40 mg DAILY SC Last administered on 12/10/18at 08:32; Admin Dose 40 MG; Start 12/08/18 at 09:00 Atorvastatin Calcium (Lipitor) 10 mg QHS PO Last administered on 12/10/18at 20:55; Admin Dose 10 MG; Start 12/07/18 at 21:00 Albuterol/ Ipratropium (Duoneb) 3 ml Q2H RESP THERAPY PRN HHN WHEEZING Last administered on 12/11/18 14:44; Admin Dose 3 ML; Start 12/07/18 at 20:30 Sertraline HCl (Zoloft) 100 mg DAILY PO Last administered on 12/10/18 08:20; Admin Dose 100 MG; Start 12/08/18 at 09:00 Labetalol HCl (Labetalol) 10 mg Q4H PRN IV ELEVATED SYSTOLIC BP Last administered on 12/08/18 03:18; Admin Dose 10 MG; Start 12/08/18 at 03:30 Hydralazine HCl (Apresoline) 10 mg Q4H PRN IV ELEVATED SYSTOLIC BP Last administered on 12/11/18 14:24; Admin Dose 10 MG; Start 12/08/18 at 03:30 Docusate Sodium (Colace) 100 mg BID PO Last administered on 12/10/18 20:55; Admin Dose 100 MG; Start 12/08/18 at 21:00 Losartan Potassium (Cozaar) 50 mg BID PO Last administered on 12/10/18 20:56; Admin Dose 50 MG; Start 12/08/18 at 21:00 Olanzapine (Zyprexa) 2.5 mg DAILY PO Last administered on 12/10/18 08:20; Admin Dose 2.5 MG; Start 12/10/18 at 09:00 Thiamine HCl (Vitamin B1) 100 mg DAILY PO Last administered on 12/10/18 08:20; Admin Dose 100 MG; Start 12/09/18 at 14:30 Nicotine (Nicoderm 14 Mg/ 24hr) 1 patch DAILY PRN TRANSDERM CONTROL WITHDRAWAL SYMPTOMS Last administered on 12/10/18 15:42; Admin Dose 1 PATCH; Start 12/09/18 at 15:00 Fluoxetine HCl (Prozac) 20 mg BID PO Last administered on 12/10/18 22:31; Admin Dose 20 MG; Start 12/09/18 at 21:00 Prednisone (Prednisone) 60 mg DAILY PO Last administered on 12/10/18 08:20; Admin Dose 60 MG; Start 12/09/18 at 17:00 Lamotrigine (Lamictal) 25 mg DAILY PO Last administered on 12/10/18 08:21; Admin Dose 25 MG; Start 12/09/18 at 17:30 Carvedilol (Coreg) 12.5 mg BID PO ; Start 12/11/18 at 21:00 Furosemide (Lasix) 40 mg DAILY PO ; Start 12/12/18 at 09:00 MONIQUE FERNANDEZ NP Dec 11, 2018 17:01
[2018-12-11 19:48] VITALS: BP 181/84; PULSE 82; RESP 18
[2018-12-11] MEDS: ATORVASTATIN 10 MG TAB PO SCH (20:09)
[2018-12-11 22:04] VITALS: BP 174/83; PULSE 91
[2018-12-12 01:53] VITALS: BP 173/100; PULSE 80; RESP 18
[2018-12-12] MEDS: hydrALAzine 20 MG INJ IV PRN ×2 (01:54→06:23)
[2018-12-12 06:21] VITALS: BP 179/100; PULSE 79
[2018-12-12 07:05] VITALS: BP 151/73; PULSE 92
[2018-12-12] MEDS: THIAMINE 100 MG TAB PO SCH (08:54)
[2018-12-12] MEDS: FAMOTIDINE 20 MG TAB PO SCH ×2 (08:54→19:33)
[2018-12-12] MEDS: LAMOTRIGINE 25 MG TAB PO SCH (08:54)
[2018-12-12] MEDS: SERTRALINE 100 MG TAB PO SCH (08:54)
[2018-12-12] MEDS: predniSONE 20 MG TAB PO SCH (08:54)
[2018-12-12] MEDS: LOSARTAN 50 MG TAB PO SCH ×2 (08:55→19:36)
[2018-12-12] MEDS: OLANZAPINE 2.5 MG TAB PO SCH (08:56)
[2018-12-12] MEDS: DOCUSATE SODIUM 100 MG CAP PO SCH ×2 (08:56→19:32)
[2018-12-12] MEDS: FLUOXETINE 20 MG CAP PO SCH ×2 (08:56→19:33)
[2018-12-12] MEDS: ASPIRIN 81 MG TAB PO SCH (08:56)
[2018-12-12] MEDS: ENOXAPARIN 40 MG/0.4 ML SYG SC SCH (08:57)
[2018-12-12] MEDS ORDERED: FUROSEMIDE 40 MG TAB PO SCH (09:00)
--- NOTE | 2018-12-12 14:18 | PDOCDIS ---
Discharge Instructions CONDITION [id number] Patient Condition: [id number] Stable HOME CARE INSTRUCTIONS: [id number] Diet Instructions: [id number] Low Fat /Cholesterol FOLLOW UP/APPOINTMENTS Follow-up Plan Adam Pérez MD Specialty: Internal Medicine Office Address: [address] [place], [place] [id number] Office OTHER ORDERS: Other Orders: 1. Take medications as per prescription. 2. Follow a low-cholesterol, low-sodium diet. 3. Abstain from using recreational drugs. 4. Resume activities as tolerated. 5. Please follow-up with your primary care physician in 2 weeks. If you do not have a primary care physician, please call Dr. Adam Pérez's office. 6. Please go to the nearest emergency room if you have any chest pain, significant shortness of breath, or any other unusual signs/symptoms. MONIQUE FERNANDEZ NP Dec 12, 2018 14:18
--- NOTE | 2018-12-12 14:19 | DS ---
Date/Time of Note Date/Time of Note DATE: 12/12/18 TIME: 14:19 Discharge Summary Admission/Discharge Info Admit Date/Time Dec 07, 2018 at 10:06 Discharge Date/Time Discharge Diagnosis 1. S/P acute respiratory failure, hypoxic. 2. Acute on chronic CHF exacerbation,systolic dysfunction. 3. Dilated cardiomyopathy. Ejection fraction of 35%. 4. Hypertensive emergency. 5. Dyslipidemia. 6. Substance abuse. Chronic nicotine and methamphetamine user. 7. Morbid obesity. BMI more than 40. 8. Non-compliance. 9. Mood disorder. Patient Condition: Stable Consults 1. Sebastián Sigala MD, Cardiology. Procedures Nuclear Medicine Myocardial Perfusion Study IMPRESSION: 1. Severe left ventricular dilatation. 2. Globally diminished wall motion. 3. Severe depressed ejection fraction of 19% 4. Findings are consistent with dilated cardiomyopathy. 5. No evidence for definite reversible ischemia. 6. Mildly worsened appearances compared to the prior study. Hx of Present Illness This is a 53-year-old male with comorbidities including cardiomyopathy with ejection fraction of 35%, systolic heart failure, hypertension, dyslipidemia, morbid obesity, nicotine use, methamphetamine abuse, and mood disorder who came to the emergency room with chief complaint of dyspnea who was found to have evidence of underlying CHF exacerbation and was admitted to inpatient setting for further treatment and evaluation. Hospital Course The patient was admitted to intensive care unit initially. The patient was maintained on noninvasive positive pressure ventilation. The patient was gradually weaned off noninvasive positive pressure ventilation. The etiology of the patient's acute respiratory failure could have been a combination of underlying CHF exacerbation along with bronchospasms. The patient was maintained on diuretic therapy and inhaled bronchodilators along with a tapering dose of steroids. The patient has known history of systolic heart failure. The patient had evidence of acute on chronic CHF exacerbation. The patient has known history of cardiomyopathy with ejection fraction as per 2D echocardiogram of 35%. A cardiology consult was obtained. The patient was maintained on a beta blockers and ARB's. The patient had hypertensive emergency in the emergency room that was treated with a short course of nitroglycerin drip. The patient has known history of dilated cardiomyopathy. The patient underwent a nuclear medicine cardiac stress test that was showing severe dilated cardiomyopathy with ejection fraction of 19% at stress. The patient has a history of noncompliance with medications and medical advice. The patient continues to use of methamphetamines despite his underlying cardiomyopathy. His case was discussed with the patient's ring cutter lathe operator who saw the patient in-house. As per the ring cutter lathe operator, patient needs to be compliant with his medications before he can be considered for a any AICD or LifeVest. The patient has underlying dyslipidemia. He was maintained on statins. The patient has mood disorders. The patient was maintained on mood stabilizers. The patient is morbidly obese with a BMI of more than 40 kg/m. The patient was advised on weight reduction. Upon discharge, the patient will be discharged on beta- blockers, ARB's, and diuretic therapy. The patient will also be discharged on inhaled bronchodilators. A nebulizer prescription was given to the patient. The patient had a stable hospital course and the patient is stable to be discharged home. Discharge Instructions 1. Take medications as per prescription. 2. Follow a low-cholesterol, low-sodium diet. 3. Abstain from using recreational drugs. 4. Resume activities as tolerated. 5. Please follow-up with your primary care physician in 2 weeks. If you do not have a primary care physician, please call Dr. Adam Pérez's office. 6. Please go to the nearest emergency room if you have any chest pain, significant shortness of breath, or any other unusual signs/symptoms. The patient verbalized understanding of his discharge instructions. At this time I would like to thank Dr. Sigala for seeing the patient and providing clinical recommendations. The patient was seen in collaboration with Dr. Wen.. Home Meds Active Scripts Albuterol Sulfate* (Albuterol Sulfate* Neb) 0.083%-3 Ml Neb, 2.5 MG NEB Q4H, #30 VIAL Prov:MONIQUE FERNANDEZ NP 12/11/18 Salmeterol Xinaf/Fluticasone* (Advair*) 250-50 Diskus Inhaler, 1 INH INHALATION BID, #1 INHALER Prov:MONIQUE FERNANDEZ NP 12/11/18 Prednisone* (Prednisone*) 20 Mg Tab, 60 MG PO DAILY for 2 Days, #2 TAB Prov:MONIQUE FERNANDEZ NP 12/11/18 Furosemide* (Furosemide*) 40 Mg Tablet, 40 MG PO DAILY, #30 TAB Prov:MONIQUE FERNANDEZ NP 12/11/18 Losartan Potassium* (Cozaar*) 50 Mg Tablet, 50 MG PO BID, #60 TAB Prov:MONIQUE FERNANDEZ NP 12/11/18 Carvedilol* (Carvedilol*) 12.5 Mg Tablet, 12.5 MG PO BID, #60 TAB Prov:MONIQUE FERNANDEZ NP 12/11/18 Reported Medications Lamotrigine* (Lamictal* XR) 25 Mg Tab.er.24, 25 MG PO DAILY 09/06/12 Olanzapine (Zyprexa) 2.5 Mg Tablet, 2.5 MG PO DAILY 09/06/12 Atorvastatin (Lipitor) 10 Mg Tablet, 10 MG PO DAILY 09/06/12 Aspirin* (Aspirin* EC) 81 Mg Tablet.dr, 81 MG PO DAILY 09/06/12 Fluoxetine Hcl* (Fluoxetine Hcl*) 20 Mg Capsule, 20 MG PO BID 09/06/12 Discontinued Reported Medications Atorvastatin Calcium* (Atorvastatin Calcium*) Unknown Strength Tablet, PO QHS, #30 TAB 06/26/17 Losartan-Hydrochlorothiazide (Losartan-HCTZ) Unknown Strength Tab, PO DAILY, TAB 06/26/17 Metoprolol Succinate* (Toprol XL*) 25 Mg Tab.sr.24h, 25 MG PO DAILY 09/06/12 Discontinued Scripts Hydrocodone/Acetaminophen ([place] 5-325 Tablet) 1 Each Tablet, 1 TAB PO Q6H, #20 TAB Prov:BETHANY WEINSTEIN NP 06/27/17 Ibuprofen* (Motrin*) 600 Mg Tab, 600 MG PO Q6H PRN for PAIN AND OR ELEVATED TEMP, #30 TAB Prov:BETHANY WEINSTEIN NP 06/27/17 Follow-up Plan Adam Pérez MD Specialty: Internal Medicine Office Address: [address] [place] [address] Office Primary Care Provider Not On Staff Doctor MONIQUE FERNANDEZ NP Dec 12, 2018 14:19
[2018-12-12 14:44] VITALS: BP 143/84; PULSE 98; RESP 16
[2018-12-12 19:20] VITALS: BP 176/81; PULSE 87; RESP 18
[2018-12-12] MEDS: ATORVASTATIN 10 MG TAB PO SCH (19:33)
[2018-12-12 20:00] VITALS: BP 176/83; PULSE 91; RESP 18
== END 2018-12-12 21:10 | disposition home or self-care (01) | DRG 291 ==
LOC: E/R 08:20 → ICU 10:06 → 6WM 12-08 22:24 → 5EC 12-10 18:10
PROVIDERS: ADMIT Family Medicine; ATTEND Internal Medicine
DX: I11.0 Hypertensive heart disease with heart failure (principal); J96.01 Acute respiratory failure with hypoxia; I16.1 Hypertensive emergency; Z68.41 Body mass index [BMI] 40.0-44.9, adult; Z91.14 Patient's other noncompliance with medication regimen; I50.23 Acute on chronic systolic (congestive) heart failure; I42.0 Dilated cardiomyopathy; E66.01 Morbid (severe) obesity due to excess calories; E78.5 Hyperlipidemia, unspecified; F15.90 Other stimulant use, unspecified, uncomplicated; F17.210 Nicotine dependence, cigarettes, uncomplicated; F43.10 Post-traumatic stress disorder, unspecified; F32.9 Major depressive disorder, single episode, unspecified
CPT/HCPCS: 36600; 71045; 78452; 80048; 80053; 80061; 80307; 81001; 82550; 82553; 82803; 83036; 83735; 83880; 84100; 84484; 85025; 85610; 85730; 87081; 87400; 93005; 93017; 94640; 94644; 94660; 94664; 96365; 96375; A9500; A9505; J0360; J1650; J1940; J2060; J2270; J2405; J2785; J2930; J7512

== ENCOUNTER 2019-01-16 16:26 | Inpatient (IN) | payer BC ==
[~2019-01-16] VITALS: Ht 188 cm; Wt 141.0 kg
[~2019-01-16 16:26] MED LIST changes: +ADV25050 INHALATION; +ALBU2.5V3 NEB; -ATOR20TA38 PO; +CARV12.579 PO; +FURO40TA4 PO; -HYDR-4011 PO; -IBUP-1542 PO; -LOSA1TAB22 PO; +LOSA50TA2 PO; -METO-335 PO; +PRED20TA PO
[2019-01-16] MEDS ORDERED: IPRATROPIUM (NEB) 0.5 MG/2.5 ML AMP INH STA (16:45)
[2019-01-16] MEDS ORDERED: ACETAMINOPHEN 325 MG TAB PO STA (16:45)
[2019-01-16] MEDS ORDERED: AZITHROMYCIN 500MG/NS (PMX) 250 ML IV STA (16:45)
[2019-01-16] MEDS ORDERED: CEFTRIAXONE 1 GM/50 ML (PMX) 50 ML IVPB STA (16:45)
[2019-01-16] MEDS ORDERED: MAGNESIUM SULFATE 2 GM/50 ML 50 ML IVPB STA (16:45)
[2019-01-16] MEDS ORDERED: ALBUTEROL 0.5% (NEB) 2.5 MG/0.5 ML AMP INH STA (16:45)
--- NOTE | 2019-01-16 16:53 | ERD ---
ER Documentation Chief Complaint Chief Complaint RDS WITH HX OF COPD/CHF HPI 53-year-old gentleman who presents the emergency room complaining of shortness of breath and had found to have a fever at triage. Patient describes a history of CHF with recent hospitalization for similar. The patient is still smoking though he states that he quit 2 days ago. Patient also describes a history of COPD. Worsening shortness of breath over the last several days with bilateral lower extremity pitting edema that has been worsening as well as PND orthopnea and dyspnea on exertion. No chest pain or chest pressure, no pleuritic pain. No productive cough. ROS All systems reviewed and are negative except as per history of present illness. Medications Home Meds Reported Medications Salmeterol Xinaf/Fluticasone* (Advair*) 250-50 Diskus Inhaler, 1 INH INHALATION BID, #1 INHALER 01/16/19 Olanzapine* (Zyprexa*) 2.5 Mg Tablet, 2.5 MG PO DAILY, #30 TAB 01/16/19 Losartan Potassium* (Losartan Potassium*) 50 Mg Tablet, 50 MG PO BID, TAB 01/16/19 Lamotrigine* (Lamotrigine*) 25 Mg Tablet, 25 MG PO DAILY, TAB 01/16/19 Furosemide* (Furosemide*) 40 Mg Tablet, 40 MG PO DAILY, TAB 01/16/19 Fluoxetine Hcl* (Fluoxetine Hcl*) 20 Mg Capsule, 20 MG PO BID, CAP 01/16/19 Carvedilol* (Carvedilol*) 12.5 Mg Tablet, 12.5 MG PO BID, #60 TAB 01/16/19 Albuterol Sulfate* (Albuterol Sulfate* Neb) 0.083%-3 Ml Neb, 2.5 MG NEB Q4H PRN for WHEEZING AND SOB, #30 VIAL 01/16/19 Atorvastatin Calcium (Atorvastatin Calcium) 10 Mg Tablet, 10 MG PO QHS, #30 TAB 01/16/19 Aspirin* (Aspirin* EC) 81 Mg Tablet.dr, 81 MG PO DAILY, TAB 01/16/19 Discontinued Reported Medications Lamotrigine* (Lamictal* XR) 25 Mg Tab.er.24, 25 MG PO DAILY 09/06/12 Olanzapine (Zyprexa) 2.5 Mg Tablet, 2.5 MG PO DAILY 09/06/12 Atorvastatin (Lipitor) 10 Mg Tablet, 10 MG PO DAILY 09/06/12 Aspirin* (Aspirin* EC) 81 Mg Tablet.dr, 81 MG PO DAILY 09/06/12 Fluoxetine Hcl* (Fluoxetine Hcl*) 20 Mg Capsule, 20 MG PO BID 09/06/12 Discontinued Scripts Albuterol Sulfate* (Albuterol Sulfate* Neb) 0.083%-3 Ml Neb, 2.5 MG NEB Q4H, #30 VIAL Prov:MONIQUE FERNANDEZ COMMUNITY EDUCATOR 12/11/18 Salmeterol Xinaf/Fluticasone* (Advair*) 250-50 Diskus Inhaler, 1 INH INHALATION BID, #1 INHALER Prov:MONIQUE FERNANDEZ COMMUNITY EDUCATOR 12/11/18 Prednisone* (Prednisone*) 20 Mg Tab, 60 MG PO DAILY for 2 Days, #2 TAB Prov:MONIQUE FERNANDEZ NP 12/11/18 Furosemide* (Furosemide*) 40 Mg Tablet, 40 MG PO DAILY, #30 TAB Prov:MONIQUE FERNANDEZ COMMUNITY EDUCATOR 12/11/18 Losartan Potassium* (Cozaar*) 50 Mg Tablet, 50 MG PO BID, #60 TAB Prov:MONIQUE FERNANDEZ COMMUNITY EDUCATOR 12/11/18 Carvedilol* (Carvedilol*) 12.5 Mg Tablet, 12.5 MG PO BID, #60 TAB Prov:MONIQUE FERNANDEZ COMMUNITY EDUCATOR 12/11/18 Allergies Allergies: Coded Allergies: No Known Allergy (Unverified , 01/16/19) PMhx/Soc History of Surgery: No Anesthesia Reaction: No Hx Neurological Disorder: No Hx Respiratory Disorders: Yes (COPD) Hx Cardiac Disorders: No Hx Psychiatric Problems: Yes (PTSD, Bipolar) Hx Miscellaneous Medical Probl: No Hx Alcohol Use: Yes (socially) Hx Substance Use: Yes Hx Tobacco Use: Yes FmHx Family History: No diabetes Physical Exam Vitals Vital Signs Date Temp Pulse Resp B/P (MAP) Pulse Ox O2 O2 Flow FiO2 Time Delivery Rate 01/16/19 106 19 126/94 100 BIPAP 19:14 (105) 01/16/19 106 100 35 19:06 01/16/19 115 21 154/101 97 BIPAP 18:03 (118) 01/16/19 122 100 35 17:51 01/16/19 99.1 17:02 01/16/19 108 100 35 17:01 01/16/19 108 20 17:01 01/16/19 99.1 118 28 178/103 97 Nasal 3.0 16:46 (128) Cannula 01/16/19 Nasal 4 16:40 Cannula 01/16/19 101.2 122 28 174/105 97 16:29 (128) Physical Exam General: Respiratory distress, speaking in short sentences Head: Normocephalic, atraumatic. Eyes: Pupils equally reactive, EOM intact ENT: Moist mucous membranes Neck: Supple, no lymphadenopathy Respiratory: Wheezing and rales at the bases bilaterally with increased work of breathing. Cardiovascular: Tachycardia, no murmurs, rubs, or gallops Abdominal: Soft, non-tender, non-distended, no peritoneal signs : Deferred MSK: Firm pitting edema to the bilateral lower extremities, no unilateral swelling, 5/5 strength Neurologic: Alert and oriented, moving all extremities, normal speech, no focal weakness, no cerebellar signs Skin: No rash Psych: Normal mood Result Diagram: 01/16/19 1653 01/16/19 1653 Results 24 hrs Laboratory Tests Test 01/16/19 16:53 01/16/19 17:43 White Blood Count 8.8 10^3/ul Red Blood Count 5.80 10^6/ul Hemoglobin 13.8 g/dl Hematocrit 44.9 % Mean Corpuscular Volume 77.4 fl Mean Corpuscular Hemoglobin 23.8 pg Mean Corpuscular Hemoglobin Concent 30.7 g/dl Red Cell Distribution Width 15.4 % Platelet Count 277 10^3/UL Mean Platelet Volume 10.1 fl Immature Granulocytes % 0.600 % Neutrophils % % Segmented Neutrophils % (Manual) 77 % Band Neutrophils % (Manual) 3 % Lymphocytes % % Lymphocytes % (Manual) 6 % Monocytes % % Monocytes % (Manual) 13 % Eosinophils % % Eosinophils % (Manual) 1 % Basophils % % Nucleated Red Blood Cells % 0.0 /100WBC Immature Granulocytes # 0.050 10^3/ul Neutrophils # 10^3/ul Neutrophils # (Manual) 6.8 10^3/ul Band Neutrophils # 0.2 10^3/ul Lymphocytes (Manual) 0.5 10^3/ul Lymphocytes # 10^3/ul Monocytes # 10^3/ul Monocytes # (Manual) 1.1 10^3/ul Eosinophils # 10^3/ul Basophils # 10^3/ul Nucleated Red Blood Cells # 10^3/ul Platelet Estimate NORMAL Polychromasia 1+ Poikilocytosis 2+ Anisocytosis 2+ Microcytosis 2+ Prothrombin Time 12.8 Sec Prothrombin Time Ratio 1.0 INR International Normalized Ratio 0.95 Activated Partial Thromboplast Time 28.3 Sec Sodium Level 138 mmol/L Potassium Level 4.3 mmol/L Chloride Level 107 mmol/L Carbon Dioxide Level 22 mmol/L Anion Gap 9 Blood Urea Nitrogen 21 mg/dl Creatinine 0.76 mg/dl Est Glomerular Filtrat Rate mL/min > 60 mL/min Glucose Level 98 mg/dl Lactic Acid Level 1.5 mmol/L Calcium Level 8.7 mg/dl Total Bilirubin 0.2 mg/dl Direct Bilirubin 0.00 mg/dl Indirect Bilirubin 0.2 mg/dl Aspartate Amino Transf (AST/SGOT) 41 IU/L Alanine Aminotransferase (ALT/SGPT) 42 IU/L Alkaline Phosphatase 140 IU/L Troponin I 0.053 ng/ml B-Type Natriuretic Peptide 2350 PG/ML Total Protein 6.8 g/dl Albumin 3.9 g/dl Globulin 2.90 g/dl Albumin/Globulin Ratio 1.34 Urine Color YELLOW Urine Clarity CLEAR Urine pH 6.0 Urine Specific [place] 1.021 Urine Ketones NEGATIVE mg/dL Urine Nitrite NEGATIVE mg/dL Urine Bilirubin NEGATIVE mg/dL Urine Urobilinogen NEGATIVE mg/dL Urine Leukocyte Esterase NEGATIVE Jacey/ul Urine Hemoglobin NEGATIVE mg/dL Urine Glucose NEGATIVE mg/dL Urine Total Protein NEGATIVE mg/dl Current Medications Medications Dose Sig/Pedro Start Time Status Last (Trade) Ordered Route PRN Stop Time Admin Dose Reason Admin 650 mg ONCE STAT 01/16/19 DC 01/16/19 Acetaminophen PO 16:45 17:02 (Tylenol 01/16/19 16:49 Tab) Ceftriaxone 50 ml @ ONCE STAT 01/16/19 DC Sodium 100 mls/hr IVPB 16:45 01/16/19 16:55 Azithromycin 250 ml @ ONCE STAT 01/16/19 DC 250 mls/hr IV 16:45 01/16/19 16:55 Furosemide 40 mg ONCE ONCE 01/16/19 DC 01/16/19 (Lasix) IV 17:00 17:02 01/16/19 17:01 10 mg ONCE ONCE 01/16/19 DC 01/16/19 Dexamethasone IV 17:00 17:02 (Decadron) 01/16/19 17:01 1 tab ONCE ONCE 01/16/19 DC 01/16/19 Nitroglycerin SL 17:00 17:03 01/16/19 17:01 (Nitroglyceri n (Sl Tab) 0.4 Mg) 1 inch ONCE ONCE 01/16/19 DC 01/16/19 Nitroglycerin TD 17:00 17:03 01/16/19 17:01 (Nitroglyceri n 2% Oint) Albuterol 10 mg ONCE STAT 01/16/19 DC 01/16/19 (Proventil INH 16:45 17:01 0.5% (Neb)) 01/16/19 16:49 Ipratropium 1 mg ONCE STAT 01/16/19 DC 01/16/19 [place] INH 16:45 17:01 (Atrovent 01/16/19 16:49 0.02% (Neb)) Magnesium 50 ml @ 25 ONCE STAT 01/16/19 DC 01/16/19 Sulfate mls/hr IVPB 16:45 17:01 01/16/19 18:44 Cefepime HCl 50 ml @ ONCE STAT 01/16/19 DC 01/16/19 100 mls/hr IVPB 16:54 17:02 01/16/19 17:23 Vancomycin 250 ml @ ONCE ONCE 01/16/19 DC 01/16/19 HCl 125 mls/hr IVPB 17:00 17:44 01/16/19 18:59 Ondansetron 4 mg ONCE STAT 01/16/19 DC 01/16/19 HCl (Zofran IV 17:12 17:17 Inj) 01/16/19 17:13 Ondansetron 4 mg ER BRIDGE 01/16/19 HCl (Zofran PRN IV 19:00 Inj) NAUSEA/VOMITI 01/17/19 18:59 NG 650 mg ER BRIDGE 01/16/19 Acetaminophen PRN PO 19:00 (Tylenol .MILD PAIN 01/17/19 18:59 Tab) 1-3 OR TEMP 1.25 mg Q6H RESP 01/16/19 UNV Levalbuterol THERAPY HHN 20:00 (Xopenex Neb) 1.25 mg Q4H RESP 01/16/19 UNV Levalbuterol THERAPY PRN 19:30 (Xopenex HHN Neb) shortness of breath Ipratropium 0.5 mg Q6HWA RESP 01/16/19 UNV [place] THERAPY HHN 20:00 (Atrovent 0.02% (Neb)) Ipratropium 0.5 mg Q4H RESP 01/16/19 UNV [place] THERAPY PRN 19:30 (Atrovent HHN 0.02% SHORTNESS OF (Neb)) BREATH Budesonide 0.5 mg BID RESP 01/16/19 UNV (Pulmicort THERAPY HHN 20:00 (Neb)) IV Flush 3 ml PER 01/16/19 UNV (NS 3 ml) PROTOCOL IV 19:30 Ondansetron 4 mg Q6H PRN 01/16/19 UNV HCl (Zofran IV 19:30 Inj) NAUSEA/VOMITI NG 650 mg Q6H PRN 01/16/19 UNV Acetaminophen PO .PAIN 1-3 19:30 (Tylenol OR TEMP Tab) Procedures/MDM EKG, MONITORS, & DIAGNOSTIC IMAGING: EKG: I reviewed and interpreted a 12-lead EKG. Rhythm: Sinus tachycardia ST Changes: No contiguous ST segment elevations T waves: Nonspecific T wave inversions in lead I and aVL as well as lead V6 Impression: Abnormal EKG Chest x-ray: I reviewed and interpreted a 1 view of the chest Mediastinum: No enlargement Cardiac silhouette: cardiomegaly Airspace: Interstitial process consistent with pulmonary edema and possible retrocardiac opacification Bones: No evidence of fracture Most recent echocardiogram Conclusions The left ventricle is normal in size with moderately reduced systolic function. Estimated left ventricular ejection fraction of 35%. There is global hypokinesis. Mild concentric left ventricular hypertrophy. Right atrial pressure is elevated. LAB INTERPRETATION: I reviewed the laboratory testing and it shows negative troponin, elevated BNP, normal lactic acid MEDICAL DECISION MAKING: The patient's presentation is consistent with fever, shortness of breath and respiratory distress. He is likely concomitant COPD exacerbation with CHF exacerbation. The patient has very poor ejection fraction. The patient does have Sirs criteria with suspicion for pneumonia. The patient does meet criteria for sepsis and a code sepsis was initiated. However the patient has very poor EF and has clinical signs and symptoms consistent with significant volume overload requiring positive pressure ventilation. For this reason I do not believe that fluid resuscitation would be indicated and the risks outweigh the benefits. For the patient's COPD exacerbation he will be treated with breathing treatmen ts, steroids and antibiotics. Antipyretics provided. Flu swab sent. For the patient's CHF exacerbation he will be treated with positive pressure ventilation and preload and afterload reduction with nitroglycerin and Lasix. Continue to monitor need for nitroglycerin drip. ER COURSE: * Patient was treated for both COPD and CHF exacerbations as documented above. Blood cultures prior to broad-spectrum antibiotics. Antipyretics. 30 cc/kg bolus of normal saline with held given volume overload and CHF exacerbation and respiratory failure. * Patient is intermittently tolerated positive pressure ventilation but blood pressure is dramatically improved with multiple doses of nitroglycerin subli ngually and nitroglycerin paste. * The patient is improved dramatically. While he does require a short course of positive pressure ventilation I do believe that telemetry placement would be appropriate. Patient is unlikely to require escalation of care. CONSULTATION: None DISPOSITION PLAN: Accepting care team and consultations: I discussed the current laboratory data, diagnostic imaging and emergency care provided. Admitting team: Dr. Morales Admitting team indication: Insurance directed Sepsis Documentation: Patient's infectious symptoms have not stabilized and the patient is at risk of rapid decompensation. The patient will be admitted for careful hydration, antibiotic therapy, and infectious source control. SEVERE SEPSIS CRITERIA: Infectious source: Healthcare associated pneumonia End organ damage indicated by: No evidence of endorgan dysfunction at this time SEPSIS MANAGEMENT Time of recognition of sepsis: Upon MD assessment. Time of recognition of severe sepsis: No severe sepsis at this time. Time of recognition of septic shock: No septic shock at this time. 3 HOUR BUNDLE Blood cultures x 2 before broad-spectrum antibiotics: Yes 30 ml/kg NS bolus not provided given documentation above Initial lactate less than 2 Repeat lactate pending repeat SEPTIC SHOCK ASSESSMENT: No lactic acid > 4.0 No persistent hypotension (SBP < 90 or 40 mmHg drop, MAP < 65) despite 30 mL/kg IV fluid bolus VOLUME REASSESSMENT FOR SEPTIC SHOCK: The patient does not meet criteria for septic shock in the emergency department at this time PERSISTENT HYPOTENSION TREATMENT: Comfort care no Central line not Required Vasopressor started not required I considered further perfusion assessment with CVP measurement, SCVO2, bedside ultrasound volume assessment, passive leg raise, trial of further fluid bolus. And proceeded with 30 ml/kg fluid bolus of NSS, broad spectrum antibiotics, and admission. CRITICAL CARE Critical care time 35 minutes Emergent fluid management while maintaining close respiratory support. Provision of immediate and broad-spectrum antibiotic therapy. Simultaneous assessment for possible sources in order to direct targeted therapy. Consideration for invasive and chemical support to prevent cardiopulmonary collapse. Critical care time is independent of procedures performed. Departure Diagnosis: Primary Impression: Acute respiratory failure Respiratory failure complication: unspecified whether with hypoxia or hypercapnia Qualified Codes: J96.00 - Acute respiratory failure, unspecified whether with hypoxia or hypercapnia Additional Impressions: Acute exacerbation of CHF (congestive heart failure) Heart failure type: systolic Qualified Codes: I50.23 - Acute on chronic systolic (congestive) heart failure COPD with acute exacerbation Healthcare-associated pneumonia Sepsis Sepsis type: sepsis due to unspecified organism Qualified Codes: A41.9 - Sepsis, unspecified organism Condition: CAMELIA Bolton MD Jan 16, 2019 16:53
[2019-01-16] MEDS ORDERED: CEFEPIME 2GM/50 ML (PMX) 50 ML IVPB STA (16:54)
[2019-01-16] MEDS ORDERED: NITROGLYCERIN (SL) 0.4 MG TAB SL ONE (17:00)
[2019-01-16] MEDS ORDERED: FUROSEMIDE 40 MG INJ IV ONE (17:00)
[2019-01-16] MEDS ORDERED: VANCOMYCIN 1 GM (PMX) 250 ML IVPB ONE (17:00)
[2019-01-16] MEDS ORDERED: DEXAMETHASONE 10 MG/ML 1 ML INJ IV ONE (17:00)
[2019-01-16] MEDS ORDERED: NITROGLYCERIN 2% 1 GM OINT PKT TD ONE (17:00)
[2019-01-16] MEDS ORDERED: ONDANSETRON 4 MG INJ IV STA (17:12)
[2019-01-16] MEDS ORDERED: ASPI-817 PO (17:37)
[2019-01-16] MEDS ORDERED: ATOR10TA65 PO (17:37)
[2019-01-16] MEDS ORDERED: CARV12.579 PO (17:38)
[2019-01-16] MEDS ORDERED: ALBU2.5V3 NEB (17:38)
[2019-01-16] MEDS ORDERED: FURO40TA4 PO (17:39)
[2019-01-16] MEDS ORDERED: LAMO25TA PO (17:39)
[2019-01-16] MEDS ORDERED: FLUO20CA22 PO (17:39)
[2019-01-16] MEDS ORDERED: LOSA50TA14 PO (17:40)
[2019-01-16] MEDS ORDERED: OLAN2.5T28 PO (17:40)
[2019-01-16] MEDS ORDERED: ADV25050 INHALATION (17:41)
[2019-01-16] MEDS ORDERED: ACETAMINOPHEN 325 MG TAB PO PRN (19:00)
[2019-01-16] MEDS ORDERED: ONDANSETRON 4 MG INJ IV PRN ×2 (19:00→19:30)
[2019-01-16] MEDS ORDERED: IPRATROPIUM (NEB) 0.5 MG/2.5 ML AMP HHN PRN (19:30)
[2019-01-16] MEDS ORDERED: NACL 0.9% 3 ML SYG IV SCH (19:30)
[2019-01-16] MEDS ORDERED: LEVALBUTEROL (NEB) 1.25 MG/0.5 ML AMP HHN PRN (19:30)
[2019-01-16] MEDS: LEVALBUTEROL (NEB) 1.25 MG/0.5 ML AMP HHN SCH (20:00)
[2019-01-16] MEDS: BUDESONIDE (NEB) 0.5MG/2ML AMP HHN SCH (20:00)
[2019-01-16] MEDS: IPRATROPIUM (NEB) 0.5 MG/2.5 ML AMP HHN SCH (20:00)
[2019-01-17] VITALS (9 sets, daily range): BP systolic 143–175; BP diastolic 80–101; PULSE 84–103; RESP 20–22; Ht 188 cm; Wt 141.0 kg
[2019-01-17] MEDS: ACETAMINOPHEN 325 MG TAB PO PRN ×2 (00:54→20:22)
[2019-01-17] MEDS ORDERED: SUMATRIPTAN 6 MG/0.5 ML INJ SC ONE (01:30)
[2019-01-17] MEDS: LEVALBUTEROL (NEB) 1.25 MG/0.5 ML AMP HHN SCH ×4 (02:00→19:38)
[2019-01-17] MEDS ORDERED: hydrALAzine 20 MG INJ IV ONE (04:30)
--- NOTE | 2019-01-17 05:31 | HP ---
Date/Time of Note Date/Time of Note DATE: 01/17/19 TIME: 05:28 Assessment/Plan VTE Prophylaxis Pharmacological prophylaxis: heparin Lines/Catheters IV Catheter Type (from Nrsg): [place] Assessment/Plan Assessment/Plan 1. Sepsis: As evidenced by fever, tachycardia: Likely URI/bronchitis -IV antibiotic, supplemental oxygen, bronchodilators, Lasix, steroid (see #2) -Follow-up culture results 2. Shortness of breath secondary to CHF and COPD exacerbation with likely bronchitis or early developing pneumonia -See #1 3. Hypertension: Adjust BP meds as needed 4. Lipidemia: Continue statin 5. Morbid obesity with a BMI of 51: Weight reduction advised 6. Cardiomyopathy with EF of 35%: See #2 7. Substance abuse: Methamphetamine and nicotine Result Diagram: 01/16/19 1653 01/16/19 1653 Results 24hrs Laboratory Tests Test 01/16/19 16:53 01/16/19 17:43 01/16/19 19:50 01/16/19 22:20 White Blood Count 8.8 # Red Blood Count 5.80 Hemoglobin 13.8 L Hematocrit 44.9 Mean Corpuscular 77.4 L Volume Mean Corpuscular 23.8 L Hemoglobin Mean Corpuscular 30.7 L Hemoglobin Concen t Red Cell 15.4 H Distribution Width Platelet Count 277 # Mean Platelet 10.1 Volume Immature 0.600 H Granulocytes % Neutrophils % Segmented 77 Neutrophils % (Manual) Band Neutrophils 3 % (Manual) Lymphocytes % Lymphocytes % 6 L (Manual) Monocytes % Monocytes % 13 H (Manual) Eosinophils % Eosinophils % 1 (Manual) Basophils % Nucleated Red 0.0 Blood Cells % Immature 0.050 H Granulocytes # Neutrophils # Neutrophils # 6.8 (Manual) Band Neutrophils 0.2 # Lymphocytes 0.5 L (Manual) Lymphocytes # Monocytes # Monocytes # 1.1 H (Manual) Eosinophils # Basophils # Nucleated Red Blood Cells # Platelet Estimate NORMAL Polychromasia 1+ Poikilocytosis 2+ Anisocytosis 2+ Microcytosis 2+ Prothrombin Time 12.8 Prothrombin Time 1.0 Ratio INR International 0.95 Normalized Ratio Activated 28.3 Partial Thrombopl ast Time Sodium Level 138 Potassium Level 4.3 Chloride Level 107 Carbon Dioxide 22 Level Anion Gap 9 Blood Urea 21 H Nitrogen Creatinine 0.76 Est Glomerular > 60 Filtrat Rate mL/min Glucose Level 98 Lactic Acid Level 1.5 2.6 *H Calcium Level 8.7 Total Bilirubin 0.2 Direct Bilirubin 0.00 Indirect 0.2 Bilirubin Aspartate Amino 41 Transf (AST/SGOT) Alanine 42 Aminotransferase (ALT/SGPT) Alkaline 140 H Phosphatase Troponin I 0.053 B-Type 2350 H Natriuretic Peptide Total Protein 6.8 Albumin 3.9 Globulin 2.90 Albumin/Globulin 1.34 Ratio Urine Color YELLOW Urine Clarity CLEAR Urine pH 6.0 Urine Specific 1.021 [place] Urine Ketones NEGATIVE Urine Nitrite NEGATIVE Urine Bilirubin NEGATIVE Urine NEGATIVE Urobilinogen Urine Leukocyte NEGATIVE Esterase Urine Hemoglobin NEGATIVE Urine Glucose NEGATIVE Urine Total NEGATIVE Protein Blood Gas Blood arterial Specimen Source Arterial Blood 01/16/2019 8:00:5 Date Drawn 0 PM Arterial Blood pH 7.421 (Temp corrected) Arterial Blood 32.9 L pCO2 (Temp correct) Arterial Blood 81.0 pO2 (Temp corrected) Arterial Blood 20.9 L HCO3 Arterial Blood -2.6 Base Excess Arterial Blood 96.0 Oxygen Saturation Kal Test ACCEPTAB Arterial Blood Right Radial Gas Puncture Site Arterial 0.2 Blood Carboxyhemo globin Arterial Blood 0.4 Methemoglobin Blood Gas A-a O2 72.6 H Differential Oxyhemoglobin 95.4 Percent Blood Gas 37.0 Temperature Blood Gas NASAL CANNULA Modality FiO2 27.0 Blood Gas UP Notified Whom Blood Gas 01/16/2019 8:20:2 Notified Time 5 PM Test 01/17/19 00:32 Lactic Acid Level 2.8 *H HPI/ROS Admit Date/Time Admit Date/Time Hx of Present Illness This is a 53-year-old morbidly obese male with a history of hypertension, COPD, cardiomyopathy with EF of 35%, substance abuse with nicotine and methamphetamine, bipolar, dyslipidemia who presented to ER complaining of shortness of breath and cough. Symptom has been progressively getting worse for the past few days. Denied chest pain, fever or chills. He said his heart is "damaged" and that he wants to see a folder gluer operator. When presented to ER, he was febrile with a temperature of 101.2, heart rate 122, respiratory rate 28. Blood pressure 170s/low 100s. Chest x-ray showed cardiomegaly. Initial UA not consistent with UTI. PMH/Family/Social Past Medical History Past Surgical History Past Surgical Hx: other (see hpi) Family History Significant Family History: other Social History Smoking Status: Unknown if ever smoked Drug Use: other Exam Constitutional: other (no acute distress) Eyes: EOMI, PERRL Neck: supple Respiratory: normal air movement Cardiovascular: nl pulses Gastrointestinal: soft Extremities: normal pulses Medications Current Medications Levalbuterol (Xopenex Neb) 1.25 mg Q6H RESP THERAPY HHN ; Start 01/16/19 at 20:00 Levalbuterol (Xopenex Neb) 1.25 mg Q4H RESP THERAPY PRN HHN shortness of breath; Start 01/16/19 at 19:30 Ipratropium [place] (Atrovent 0.02% (Neb)) 0.5 mg Q6HWA RESP THERAPY HHN ; Start 01/16/19 at 20:00 Ipratropium [place] (Atrovent 0.02% (Neb)) 0.5 mg Q4H RESP THERAPY PRN HHN SHORTNESS OF BREATH; Start 01/16/19 at 19:30 Budesonide (Pulmicort (Neb)) 0.5 mg BID RESP THERAPY HHN ; Start 01/16/19 at 20:00 IV Flush (NS 3 ml) 3 ml PER PROTOCOL IV ; Start 01/16/19 at 19:30 Ondansetron HCl (Zofran Inj) 4 mg Q6H PRN IV NAUSEA/VOMITING; Start 01/16/19 at 19:30 Acetaminophen (Tylenol Tab) 650 mg Q6H PRN PO .PAIN 1-3 OR TEMP Last administered on 01/17/19at 00:54; Admin Dose 650 MG; Start 01/16/19 at 19:30 Aspirin (Halfprin) 81 mg DAILY PO ; Start 01/17/19 at 09:00 Atorvastatin Calcium (Lipitor) 10 mg QHS PO ; Start 01/17/19 at 21:00 Carvedilol (Coreg) 12.5 mg BID PO ; Start 01/17/19 at 09:00 Fluoxetine HCl (Prozac) 20 mg BID PO ; Start 01/17/19 at 09:00 Furosemide (Lasix) 40 mg DAILY PO ; Start 01/17/19 at 09:00 Lamotrigine (Lamictal) 25 mg DAILY PO ; Start 01/17/19 at 09:00 Losartan Potassium (Cozaar) 50 mg BID PO ; Start 01/17/19 at 09:00 Olanzapine (Zyprexa) 2.5 mg DAILY PO ; Start 01/17/19 at 09:00 Miscellaneous Information 1 inh BID INHALATION ; Start 01/17/19 at 09:00; Status UNV Methylprednisolone Sodium Succinate (Solu-Medrol) 60 mg DAILY IV ; Start 01/17/19 at 09:00 Coded Allergies: No Known Allergy (Unverified , 01/16/19) Past Surgical History Past Surgical Hx: no surgical history Family History Significant Family History: no pertinent family hx Social History Smoking Status: Current some day smoker Exam/Review of Systems Vital Signs Vitals Vital Signs Date Temp Pulse Resp B/P (MAP) Pulse Ox O2 O2 Flow FiO2 Time Delivery Rate 01/17/19 90 18 161/97 100 Nasal 2.0 05:14 (118) Cannula 01/17/19 97.4 03:55 01/16/19 35 19:06 Intake and Output 01/16/19 01/16/19 01/17/19 1515:00 23:00 07:00 IntakeIntake Total 100 ml OutputOutput Total 1000 ml BalanceBalance -900 ml Exam Constitutional: other (No acute distress) Head: normocephalic, atraumatic Respiratory: other (Decreased breath sounds at the bases) Cardiovascular: other (Tachycardic regular rhythm) Gastrointestinal: soft, non-tender Extremities: normal pulses PETR CHI MD Jan 17, 2019 05:31
[2019-01-17] MEDS: LOSARTAN 50 MG TAB PO SCH ×2 (08:45→20:21)
[2019-01-17] MEDS: ASPIRIN (EC) 81 MG TAB PO SCH (08:45)
[2019-01-17] MEDS: FLUOXETINE 20 MG CAP PO SCH ×2 (08:46→20:22)
[2019-01-17] MEDS ORDERED: NON-FORMULARY/PATIENT OWN MED (Salmeterol Xinaf/Fluticasone* (Advair*) 1 INH) INHALATION SCH (09:00)
[2019-01-17] MEDS ORDERED: FUROSEMIDE 40 MG TAB PO SCH (09:00)
[2019-01-17] MEDS ORDERED: METHYLPREDNISOLONE 125 MG INJ IV SCH (09:00)
[2019-01-17] MEDS ORDERED: LEVOFLOXACIN 500MG/D5W (PMX) 100 ML IVPB SCH (09:00)
[2019-01-17] MEDS: LAMOTRIGINE 25 MG TAB PO SCH (10:17)
[2019-01-17] MEDS: OLANZAPINE 2.5 MG TAB PO SCH ×2 (10:17→10:26)
[2019-01-17] MEDS: IPRATROPIUM (NEB) 0.5 MG/2.5 ML AMP HHN SCH ×3 (11:21→19:38)
[2019-01-17] MEDS: BUDESONIDE (NEB) 0.5MG/2ML AMP HHN SCH ×2 (11:22→19:56)
--- NOTE | 2019-01-17 15:50 | PN ---
Date/Time of Note Date/Time of Note DATE: 01/17/19 TIME: 15:14 Assessment/Plan VTE Prophylaxis Pharmacological prophylaxis: heparin Lines/Catheters IV Catheter Type (from Nrs): Saline Lock Urinary Cath still in place: No Assessment/Plan Assessment/Plan 1. CHF, acute on chronic, systolic with last LVEF 35%, lasix, coreg, losartan 2. Dilated cardiomyopathy, no ischemia on stress thallium test, follow up with cardiology 3. Acute bronchitis and COPD exacerbation, levaquin to rocephin/zithromax, continue on neb and steroid 4. Hypertension, stable 5. Dyslipidemia, lipitor 6. Morbid obesity with a BMI of 51: Weight reduction advised 7. Substance abuse: Methamphetamine and nicotine 8. DVT prophylaxis: heparin Result Diagram: 01/17/19 0812 01/17/19 0812 Results 24hrs Laboratory Tests Test 01/16/19 16:53 01/16/19 17:43 01/16/19 19:50 01/16/19 22:20 White Blood Count 8.8 # Red Blood Count 5.80 Hemoglobin 13.8 L Hematocrit 44.9 Mean Corpuscular 77.4 L Volume Mean Corpuscular 23.8 L Hemoglobin Mean Corpuscular 30.7 L Hemoglobin Concen t Red Cell 15.4 H Distribution Width Platelet Count 277 # Mean Platelet 10.1 Volume Immature 0.600 H Granulocytes % Neutrophils % Segmented 77 Neutrophils % (Manual) Band Neutrophils 3 % (Manual) Lymphocytes % Lymphocytes % 6 L (Manual) Monocytes % Monocytes % 13 H (Manual) Eosinophils % Eosinophils % 1 (Manual) Basophils % Nucleated Red 0.0 Blood Cells % Immature 0.050 H Granulocytes # Neutrophils # Neutrophils # 6.8 (Manual) Band Neutrophils 0.2 # Lymphocytes 0.5 L (Manual) Lymphocytes # Monocytes # Monocytes # 1.1 H (Manual) Eosinophils # Basophils # Nucleated Red Blood Cells # Platelet Estimate NORMAL Polychromasia 1+ Poikilocytosis 2+ Anisocytosis 2+ Microcytosis 2+ Prothrombin Time 12.8 Prothrombin Time 1.0 Ratio INR International 0.95 Normalized Ratio Activated 28.3 Partial Thrombopl ast Time Sodium Level 138 Potassium Level 4.3 Chloride Level 107 Carbon Dioxide 22 Level Anion Gap 9 Blood Urea 21 H Nitrogen Creatinine 0.76 Est Glomerular > 60 Filtrat Rate mL/min Glucose Level 98 Lactic Acid Level 1.5 2.6 *H Calcium Level 8.7 Total Bilirubin 0.2 Direct Bilirubin 0.00 Indirect 0.2 Bilirubin Aspartate Amino 41 Transf (AST/SGOT) Alanine 42 Aminotransferase (ALT/SGPT) Alkaline 140 H Phosphatase Troponin I 0.053 B-Type 2350 H Natriuretic Peptide Total Protein 6.8 Albumin 3.9 Globulin 2.90 Albumin/Globulin 1.34 Ratio Urine Color YELLOW Urine Clarity CLEAR Urine pH 6.0 Urine Specific 1.021 [place] Urine Ketones NEGATIVE Urine Nitrite NEGATIVE Urine Bilirubin NEGATIVE Urine NEGATIVE Urobilinogen Urine Leukocyte NEGATIVE Esterase Urine Hemoglobin NEGATIVE Urine Glucose NEGATIVE Urine Total NEGATIVE Protein Blood Gas Blood arterial Specimen Source Arterial Blood 01/16/2019 8:00:5 Date Drawn 0 PM Arterial Blood pH 7.421 (Temp corrected) Arterial Blood 32.9 L pCO2 (Temp correct) Arterial Blood 81.0 pO2 (Temp corrected) Arterial Blood 20.9 L HCO3 Arterial Blood -2.6 Base Excess Arterial Blood 96.0 Oxygen Saturation Kal Test ACCEPTAB Arterial Blood Right Radial Gas Puncture Site Arterial 0.2 Blood Carboxyhemo globin Arterial Blood 0.4 Methemoglobin Blood Gas A-a O2 72.6 H Differential Oxyhemoglobin 95.4 Percent Blood Gas 37.0 Temperature Blood Gas NASAL CANNULA Modality FiO2 27.0 Blood Gas UP Notified Whom Blood Gas 01/16/2019 8:20:2 Notified Time 5 PM Test 01/17/19 00:32 01/17/19 08:12 01/17/19 11:42 Lactic Acid Level 2.8 *H White Blood Count 5.7 # Red Blood Count 5.96 Hemoglobin 13.9 L Hematocrit 45.9 Mean Corpuscular 77.0 L Volume Mean Corpuscular 23.3 L Hemoglobin Mean Corpuscular 30.3 L Hemoglobin Concen t Red Cell 15.5 H Distribution Width Platelet Count 300 Mean Platelet 10.3 Volume Immature 0.900 H Granulocytes % Neutrophils % 77.6 H Lymphocytes % 13.2 L Monocytes % 8.1 Eosinophils % 0.0 Basophils % 0.2 Nucleated Red 0.0 Blood Cells % Immature 0.050 H Granulocytes # Neutrophils # 4.4 Lymphocytes # 0.8 Monocytes # 0.5 Eosinophils # 0.0 Basophils # 0.0 Nucleated Red 0.0 Blood Cells # Sodium Level 141 Potassium Level 4.7 Chloride Level 104 Carbon Dioxide 24 Level Anion Gap 13 Blood Urea 22 H Nitrogen Creatinine 0.61 Est Glomerular > 60 Filtrat Rate mL/min Glucose Level 137 Hemoglobin A1c 6.1 H Calcium Level 8.7 Magnesium Level 2.3 Total Bilirubin 0.2 Direct Bilirubin 0.00 Indirect 0.2 Bilirubin Aspartate Amino 39 Transf (AST/SGOT) Alanine 36 Aminotransferase (ALT/SGPT) Alkaline 112 Phosphatase Total Protein 7.0 Albumin 4.0 Globulin 3.00 Albumin/Globulin 1.33 Ratio Thyroid 0.319 L Stimulating Hormone (TSH) Lab Scanned LAB Report Subjective 24 Hr Interval Summary Free Text/Dictation shortness of breath, orthopnea, dry cough, fever on admission Exam/Review of Systems Exam Vitals Vital Signs Date Temp Pulse Resp B/P (MAP) Pulse Ox O2 O2 Flow FiO2 Time Delivery Rate 01/17/19 98.0 84 22 143/84 96 Room Air 12:22 (103) 01/17/19 3.0 11:37 01/17/19 30 11:37 Intake and Output 01/16/19 01/16/19 01/17/19 1515:00 23:00 07:00 IntakeIntake Total 100 ml OutputOutput Total 1000 ml BalanceBalance -900 ml Constitutional: alert, oriented, well developed, obese Head: normocephalic, atraumatic Eyes: nl conjunctiva, EOMI, nl lids, PERRL ENMT: nl external ears & nose, nl lips & teeth, nl nasal mucosa & septum Neck: supple, non-tender Respiratory: congested cough, crackles/rales Cardiovascular: regular rate and rhythm, nl pulses; No bruits, No diastolic murmur, No edema, No gallop, No irregular rhythm, No jugular venous distention (JVD), No murmurs/extra sounds, No rub, No systolic murmur, No S3, No S4, No other Gastrointestinal: soft, nl liver, spleen Musculoskeletal: nl extremities to inspection Extremities: edema Neurological: ORTHO TECH II-XII intact, nl mental status, nl speech, nl strength Results Results 24hrs Laboratory Tests Test 01/16/19 16:53 01/16/19 17:43 01/16/19 19:50 01/16/19 22:20 White Blood Count 8.8 # Red Blood Count 5.80 Hemoglobin 13.8 L Hematocrit 44.9 Mean Corpuscular 77.4 L Volume Mean Corpuscular 23.8 L Hemoglobin Mean Corpuscular 30.7 L Hemoglobin Concen t Red Cell 15.4 H Distribution Width Platelet Count 277 # Mean Platelet 10.1 Volume Immature 0.600 H Granulocytes % Neutrophils % Segmented 77 Neutrophils % (Manual) Band Neutrophils 3 % (Manual) Lymphocytes % Lymphocytes % 6 L (Manual) Monocytes % Monocytes % 13 H (Manual) Eosinophils % Eosinophils % 1 (Manual) Basophils % Nucleated Red 0.0 Blood Cells % Immature 0.050 H Granulocytes # Neutrophils # Neutrophils # 6.8 (Manual) Band Neutrophils 0.2 # Lymphocytes 0.5 L (Manual) Lymphocytes # Monocytes # Monocytes # 1.1 H (Manual) Eosinophils # Basophils # Nucleated Red Blood Cells # Platelet Estimate NORMAL Polychromasia 1+ Poikilocytosis 2+ Anisocytosis 2+ Microcytosis 2+ Prothrombin Time 12.8 Prothrombin Time 1.0 Ratio INR International 0.95 Normalized Ratio Activated 28.3 Partial Thrombopl ast Time Sodium Level 138 Potassium Level 4.3 Chloride Level 107 Carbon Dioxide 22 Level Anion Gap 9 Blood Urea 21 H Nitrogen Creatinine 0.76 Est Glomerular > 60 Filtrat Rate mL/min Glucose Level 98 Lactic Acid Level 1.5 2.6 *H Calcium Level 8.7 Total Bilirubin 0.2 Direct Bilirubin 0.00 Indirect 0.2 Bilirubin Aspartate Amino 41 Transf (AST/SGOT) Alanine 42 Aminotransferase (ALT/SGPT) Alkaline 140 H Phosphatase Troponin I 0.053 B-Type 2350 H Natriuretic Peptide Total Protein 6.8 Albumin 3.9 Globulin 2.90 Albumin/Globulin 1.34 Ratio Urine Color YELLOW Urine Clarity CLEAR Urine pH 6.0 Urine Specific 1.021 [place] Urine Ketones NEGATIVE Urine Nitrite NEGATIVE Urine Bilirubin NEGATIVE Urine NEGATIVE Urobilinogen Urine Leukocyte NEGATIVE Esterase Urine Hemoglobin NEGATIVE Urine Glucose NEGATIVE Urine Total NEGATIVE Protein Blood Gas Blood arterial Specimen Source Arterial Blood 01/16/2019 8:00:5 Date Drawn 0 PM Arterial Blood pH 7.421 (Temp corrected) Arterial Blood 32.9 L pCO2 (Temp correct) Arterial Blood 81.0 pO2 (Temp corrected) Arterial Blood 20.9 L HCO3 Arterial Blood -2.6 Base Excess Arterial Blood 96.0 Oxygen Saturation Kal Test ACCEPTAB Arterial Blood Right Radial Gas Puncture Site Arterial 0.2 Blood Carboxyhemo globin Arterial Blood 0.4 Methemoglobin Blood Gas A-a O2 72.6 H Differential Oxyhemoglobin 95.4 Percent Blood Gas 37.0 Temperature Blood Gas [place] Modality FiO2 27.0 Blood Gas UP Notified Whom Blood Gas 01/16/2019 8:20:2 Notified Time 5 PM Test 01/17/19 00:32 01/17/19 08:12 01/17/19 11:42 Lactic Acid Level 2.8 *H White Blood Count 5.7 # Red Blood Count 5.96 Hemoglobin 13.9 L Hematocrit 45.9 Mean Corpuscular 77.0 L Volume Mean Corpuscular 23.3 L Hemoglobin Mean Corpuscular 30.3 L Hemoglobin Concen t Red Cell 15.5 H Distribution Width Platelet Count 300 Mean Platelet 10.3 Volume Immature 0.900 H Granulocytes % Neutrophils % 77.6 H Lymphocytes % 13.2 L Monocytes % 8.1 Eosinophils % 0.0 Basophils % 0.2 Nucleated Red 0.0 Blood Cells % Immature 0.050 H Granulocytes # Neutrophils # 4.4 Lymphocytes # 0.8 Monocytes # 0.5 Eosinophils # 0.0 Basophils # 0.0 Nucleated Red 0.0 Blood Cells # Sodium Level 141 Potassium Level 4.7 Chloride Level 104 Carbon Dioxide 24 Level Anion Gap 13 Blood Urea 22 H Nitrogen Creatinine 0.61 Est Glomerular > 60 Filtrat Rate mL/min Glucose Level 137 Hemoglobin A1c 6.1 H Calcium Level 8.7 Magnesium Level 2.3 Total Bilirubin 0.2 Direct Bilirubin 0.00 Indirect 0.2 Bilirubin Aspartate Amino 39 Transf (AST/SGOT) Alanine 36 Aminotransferase (ALT/SGPT) Alkaline 112 Phosphatase Total Protein 7.0 Albumin 4.0 Globulin 3.00 Albumin/Globulin 1.33 Ratio Thyroid 0.319 L Stimulating Hormone (TSH) Lab Scanned LAB Report Medications Medication Current Medications Levalbuterol (Xopenex Neb) 1.25 mg Q6H RESP THERAPY HHN Last administered on 01/17/19at 14:53; Admin Dose 1.25 MG; Start 01/16/19 at 20:00 Levalbuterol (Xopenex Neb) 1.25 mg Q4H RESP THERAPY PRN HHN shortness of breath; Start 01/16/19 at 19:30 Ipratropium [place] (Atrovent 0.02% (Neb)) 0.5 mg Q6HWA RESP THERAPY HHN Last administered on 01/17/19at 14:53; Admin Dose 0.5 MG; Start 01/16/19 at 20:00 Ipratropium [place] (Atrovent 0.02% (Neb)) 0.5 mg Q4H RESP THERAPY PRN HHN SHORTNESS OF BREATH; Start 01/16/19 at 19:30 Budesonide (Pulmicort (Neb)) 0.5 mg BID RESP THERAPY HHN Last administered on 01/17/19at 11:22; Admin Dose 0.5 MG; Start 01/16/19 at 20:00 IV Flush (NS 3 ml) 3 ml PER PROTOCOL IV ; Start 01/16/19 at 19:30 Ondansetron HCl (Zofran Inj) 4 mg Q6H PRN IV NAUSEA/VOMITING; Start 01/16/19 at 19:30 Acetaminophen (Tylenol Tab) 650 mg Q6H PRN PO .PAIN 1-3 OR TEMP Last administered on 01/17/19at 00:54; Admin Dose 650 MG; Start 01/16/19 at 19:30 Aspirin (Halfprin) 81 mg DAILY PO Last administered on 01/17/19 08:45; Admin Dose 81 MG; Start 01/17/19 at 09:00 Atorvastatin Calcium (Lipitor) 10 mg QHS PO ; Start 01/17/19 at 21:00 Carvedilol (Coreg) 12.5 mg BID PO Last administered on 01/17/19 08:46; Admin Dose 12.5 MG; Start 01/17/19 at 09:00 Fluoxetine HCl (Prozac) 20 mg BID PO Last administered on 01/17/19 08:46; Admin Dose 20 MG; Start 01/17/19 at 09:00 Furosemide (Lasix) 40 mg DAILY PO Last administered on 01/17/19 08:46; Admin Dose 40 MG; Start 01/17/19 at 09:00 Lamotrigine (Lamictal) 25 mg DAILY PO Last administered on 01/17/19at 10:17; Admin Dose 25 MG; Start 01/17/19 at 09:00 Losartan Potassium (Cozaar) 50 mg BID PO Last administered on 01/17/19 08:45; Admin Dose 50 MG; Start 01/17/19 at 09:00 Olanzapine (Zyprexa) 2.5 mg DAILY PO ; Start 01/17/19 at 09:00 Miscellaneous Information 1 inh BID INHALATION ; Start 01/17/19 at 09:00; Status UNV Methylprednisolone Sodium Succinate (Solu-Medrol) 60 mg DAILY IV Last administered on 01/17/19at 08:43; Admin Dose 60 MG; Start 01/17/19 at 09:00 Levofloxacin/ Dextrose 100 ml @ 100 mls/hr DAILY IVPB Last administered on 01/17/19at 08:42; Admin Dose 100 MLS/HR; Start 01/17/19 at 09:00 JERRY GARCIA MD Jan 17, 2019 15:24
[2019-01-17] MEDS ORDERED: CEFTRIAXONE 1 GM/50 ML (PMX) 50 ML IVPB SCH (16:00)
[2019-01-17] MEDS ORDERED: AZITHROMYCIN 500MG/NS (PMX) 250 ML IVPB SCH (17:30)
[2019-01-17] MEDS: FUROSEMIDE 40 MG INJ IV SCH (18:24)
[2019-01-17] MEDS ORDERED: BUDESONIDE (NEB) 0.5MG/2ML AMP INH SCH (20:00)
[2019-01-17] MEDS ORDERED: ARFORMOTEROL TARTRATE 15MCG/2 ML AMP INH SCH (20:00)
[2019-01-17] MEDS ORDERED: ATORVASTATIN 10 MG TAB PO SCH (21:00)
[2019-01-18] VITALS (10 sets, daily range): BP systolic 141–188; BP diastolic 75–107; PULSE 78–117; RESP 20–22
[2019-01-18] MEDS: LEVALBUTEROL (NEB) 1.25 MG/0.5 ML AMP HHN SCH (02:00)
[2019-01-18] MEDS ORDERED: hydrALAzine 20 MG INJ IV ONE (05:00)
[2019-01-18] MEDS: FUROSEMIDE 40 MG INJ IV SCH (05:59)
[2019-01-18] MEDS: OLANZAPINE 2.5 MG TAB PO SCH (07:51)
[2019-01-18] MEDS: LAMOTRIGINE 25 MG TAB PO SCH (07:51)
[2019-01-18] MEDS: FLUOXETINE 20 MG CAP PO SCH (07:51)
[2019-01-18] MEDS: ASPIRIN (EC) 81 MG TAB PO SCH (07:51)
[2019-01-18] MEDS: LOSARTAN 50 MG TAB PO SCH (07:52)
--- NOTE | 2019-01-18 08:40 | CONS ---
Assessment/Plan Assessment/Plan Hospital Course (Demo Recall) Acute on chronic systolic heart failure - diuresed on admission, now euvolemic on my exam Bronchitis NICM: EF 35% by echo, MPI 12/12 without ischemia and EF 20%. If pt is being truthful about quitting, there is a small chance his EF may recover to a point where he does not need an ICD. As such I dont think rushing to implant an ICD is a good strategy. LifeVest is a good interim option and his EF can be rechecked in 2 more months (has been compliant and abstinent for one month) to decide if he needs an ICD still Hypertension: uncontrolled Dyslipidemia Psychiatric disorders Amphetamine use: per pt quit one month ago Medication noncompliance: now compliant per pt -LifeVest to be arranged prior to discharge if covered by insurance -change Lasix to PO 40mg daily -increase carvedilol to 25mg BID -continue losartan 50mg BID -continue aspirin 81mg daily -continue statin -check urine for amphetamines Consultation Date/Type/Reason Admit Date/Time Date of Consultation: Jan 18, 2019 Type of Consult Cardiology Reason for Consultation CHF Requesting Provider: JERRY GARCIA MD Date/Time of Note DATE: 01/18/19 TIME: 08:40 Hx of Present Illness 53 yo M with a h/o dilated NICM (EF 30%), chronic systolic CHF, HTN, HL, methamphetamine abuse, psychiatric illness, who presented with dyspnea and cough and was found to be febrile. He is being treated for bronchitis as well as decompensated CHF. His BPs have been elevated. He feels better this am. He is concerned as he was told he needs an ICD and is afraid of dying. He has not seen an outpt braille and talking books clerk in many months. As of last admission where his Utox was positive for meth, he swears he has been abstinent. He is also taking his cardiac meds and he knows the names. He wants to turn his life around. per HPI Past Medical History per hPI Home Meds Reported Medications Salmeterol Xinaf/Fluticasone* (Advair*) 250-50 Diskus Inhaler, 1 INH INHALATION BID, #1 INHALER 01/16/19 Olanzapine* (Zyprexa*) 2.5 Mg Tablet, 2.5 MG PO DAILY, #30 TAB 01/16/19 Losartan Potassium* (Losartan Potassium*) 50 Mg Tablet, 50 MG PO BID, TAB 01/16/19 Lamotrigine* (Lamotrigine*) 25 Mg Tablet, 25 MG PO DAILY, TAB 01/16/19 Furosemide* (Furosemide*) 40 Mg Tablet, 40 MG PO DAILY, TAB 01/16/19 Fluoxetine Hcl* (Fluoxetine Hcl*) 20 Mg Capsule, 20 MG PO BID, CAP 01/16/19 Carvedilol* (Carvedilol*) 12.5 Mg Tablet, 12.5 MG PO BID, #60 TAB 01/16/19 Albuterol Sulfate* (Albuterol Sulfate* Neb) 0.083%-3 Ml Neb, 2.5 MG NEB Q4H PRN for WHEEZING AND SOB, #30 VIAL 01/16/19 Atorvastatin Calcium (Atorvastatin Calcium) 10 Mg Tablet, 10 MG PO QHS, #30 TAB 01/16/19 Aspirin* (Aspirin* EC) 81 Mg Tablet.dr, 81 MG PO DAILY, TAB 01/16/19 Discontinued Reported Medications Lamotrigine* (Lamictal* XR) 25 Mg Tab.er.24, 25 MG PO DAILY 09/06/12 Olanzapine (Zyprexa) 2.5 Mg Tablet, 2.5 MG PO DAILY 09/06/12 Atorvastatin (Lipitor) 10 Mg Tablet, 10 MG PO DAILY 09/06/12 Aspirin* (Aspirin* EC) 81 Mg Tablet.dr, 81 MG PO DAILY 09/06/12 Fluoxetine Hcl* (Fluoxetine Hcl*) 20 Mg Capsule, 20 MG PO BID 09/06/12 Discontinued Scripts Albuterol Sulfate* (Albuterol Sulfate* Neb) 0.083%-3 Ml Neb, 2.5 MG NEB Q4H, #30 VIAL Prov:MONIQUE FERNANDEZ INFORMATION TECHNOLOGY INSTRUCTOR 12/11/18 Salmeterol Xinaf/Fluticasone* (Advair*) 250-50 Diskus Inhaler, 1 INH INHALATION BID, #1 INHALER Prov:MONIQUE FERNANDEZ INFORMATION TECHNOLOGY INSTRUCTOR 12/11/18 Prednisone* (Prednisone*) 20 Mg Tab, 60 MG PO DAILY for 2 Days, #2 TAB Prov:MONIQUE FERNANDEZ INFORMATION TECHNOLOGY INSTRUCTOR 12/11/18 Furosemide* (Furosemide*) 40 Mg Tablet, 40 MG PO DAILY, #30 TAB Prov:MONIQUE FERNANDEZ INFORMATION TECHNOLOGY INSTRUCTOR 12/11/18 Losartan Potassium* (Cozaar*) 50 Mg Tablet, 50 MG PO BID, #60 TAB Prov:MONIQUE FERNANDEZ INFORMATION TECHNOLOGY INSTRUCTOR 12/11/18 Carvedilol* (Carvedilol*) 12.5 Mg Tablet, 12.5 MG PO BID, #60 TAB Prov:MONIQUE FERNANDEZ INFORMATION TECHNOLOGY INSTRUCTOR 12/11/18 Medications Current Medications Levalbuterol (Xopenex Neb) 1.25 mg Q6H RESP THERAPY HHN Last administered on 01/17/19 19:38; Admin Dose 1.25 MG; Start 01/16/19 at 20:00 Levalbuterol (Xopenex Neb) 1.25 mg Q4H RESP THERAPY PRN HHN shortness of breath; Start 01/16/19 at 19:30 Ipratropium [place] (Atrovent 0.02% (Neb)) 0.5 mg Q6HWA RESP THERAPY HHN Last administered on 01/17/19 19:38; Admin Dose 0.5 MG; Start 01/16/19 at 20:00 Ipratropium [place] (Atrovent 0.02% (Neb)) 0.5 mg Q4H RESP THERAPY PRN HHN SHORTNESS OF BREATH; Start 01/16/19 at 19:30 IV Flush (NS 3 ml) 3 ml PER PROTOCOL IV ; Start 01/16/19 at 19:30 Ondansetron HCl (Zofran Inj) 4 mg Q6H PRN IV NAUSEA/VOMITING; Start 01/16/19 at 19:30 Acetaminophen (Tylenol Tab) 650 mg Q6H PRN PO .PAIN 1-3 OR TEMP Last administered on 01/17/19 20:22; Admin Dose 650 MG; Start 01/16/19 at 19:30 Aspirin (Halfprin) 81 mg DAILY PO Last administered on 01/18/19 07:51; Admin Dose 81 MG; Start 01/17/19 at 09:00 Atorvastatin Calcium (Lipitor) 10 mg QHS PO Last administered on 01/17/19 20:21; Admin Dose 10 MG; Start 01/17/19 at 21:00 Carvedilol (Coreg) 12.5 mg BID PO Last administered on 01/18/19 07:52; Admin Dose 12.5 MG; Start 01/17/19 at 09:00 Fluoxetine HCl (Prozac) 20 mg BID PO Last administered on 01/18/19 07:51; Admin Dose 20 MG; Start 01/17/19 at 09:00 Lamotrigine (Lamictal) 25 mg DAILY PO Last administered on 01/18/19 07:51; Admin Dose 25 MG; Start 01/17/19 at 09:00 Losartan Potassium (Cozaar) 50 mg BID PO Last administered on 01/18/19 07:52; Admin Dose 50 MG; Start 01/17/19 at 09:00 Olanzapine (Zyprexa) 2.5 mg DAILY PO Last administered on 01/18/19 07:51; Admin Dose 2.5 MG; Start 01/17/19 at 09:00 Methylprednisolone Sodium Succinate (Solu-Medrol) 20 mg DAILY IV Last administered on 01/18/19 08:36; Admin Dose 20 MG; Start 01/18/19 at 09:00 Ceftriaxone Sodium 50 ml @ 100 mls/hr Q24H IVPB Last administered on 01/17/19 16:36; Admin Dose 100 MLS/HR; Start 01/17/19 at 16:00 Azithromycin 250 ml @ 250 mls/hr Q24H IVPB Last administered on 01/17/19 18:17; Admin Dose 250 MLS/HR; Start 01/17/19 at 17:30 Furosemide (Lasix) 40 mg BID DIURETICS IV Last administered on 01/18/19 05:59; Admin Dose 40 MG; Start 01/17/19 at 18:00 Arformoterol Tartrate (Brovana (Neb)) 2 ml BID RESP THERAPY INH ; Start 01/17/19 at 20:00 Budesonide (Pulmicort (Neb)) 0.5 mg BID RESP THERAPY INH ; Start 01/17/19 at 20:00 Allergies: Coded Allergies: No Known Allergy (Unverified , 01/16/19) Past Surgical History Past Surgical Hx: no surgical history Social History Smoking Status: Former smoker Exam/Review of Systems Vital Signs Vitals Vital Signs Date Temp Pulse Resp B/P (MAP) Pulse Ox O2 O2 Flow FiO2 Time Delivery Rate 01/18/19 117 08:22 01/18/19 98.0 22 181/106 96 07:41 (131) 01/17/19 21 19:39 01/17/19 Nasal 17:47 Cannula 01/17/19 3.0 11:37 Intake and Output 01/17/19 01/17/19 01/18/19 1515:00 23:00 07:00 IntakeIntake Total 100 ml 1230 ml 500 ml OutputOutput Total 2800 ml BalanceBalance 100 ml 1230 ml -2300 ml Exam Constitutional: alert, oriented Psych: no complaints, nl mood/affect Head: normocephalic, atraumatic Neck: supple; No jvd Respiratory: clear to auscultation, diminished breath sounds; No crackles/rales Cardiovascular: regular rate and rhythm, edema (trace); No systolic murmur Gastrointestinal: soft, non-tender; No distended Neurological: nl mental status, nl speech Labs Result Diagram: 01/17/19 0812 01/17/19 0812 Results 24hrs Laboratory Tests Test 01/17/19 11:42 Lab Scanned Report LAB Medications Medications Current Medications Levalbuterol (Xopenex Neb) 1.25 mg Q6H RESP THERAPY HHN Last administered on 01/17/19at 19:38; Admin Dose 1.25 MG; Start 01/16/19 at 20:00 Levalbuterol (Xopenex Neb) 1.25 mg Q4H RESP THERAPY PRN HHN shortness of breath; Start 01/16/19 at 19:30 Ipratropium [place] (Atrovent 0.02% (Neb)) 0.5 mg Q6HWA RESP THERAPY HHN Last administered on 01/17/19at 19:38; Admin Dose 0.5 MG; Start 01/16/19 at 20:00 Ipratropium [place] (Atrovent 0.02% (Neb)) 0.5 mg Q4H RESP THERAPY PRN HHN SHORTNESS OF BREATH; Start 01/16/19 at 19:30 IV Flush (NS 3 ml) 3 ml PER PROTOCOL IV ; Start 01/16/19 at 19:30 Ondansetron HCl (Zofran Inj) 4 mg Q6H PRN IV NAUSEA/VOMITING; Start 01/16/19 at 19:30 Acetaminophen (Tylenol Tab) 650 mg Q6H PRN PO .PAIN 1-3 OR TEMP Last administered on 01/17/19at 20:22; Admin Dose 650 MG; Start 01/16/19 at 19:30 Aspirin (Halfprin) 81 mg DAILY PO Last administered on 01/18/19 07:51; Admin Dose 81 MG; Start 01/17/19 at 09:00 Atorvastatin Calcium (Lipitor) 10 mg QHS PO Last administered on 01/17/19 20:21; Admin Dose 10 MG; Start 01/17/19 at 21:00 Carvedilol (Coreg) 12.5 mg BID PO Last administered on 01/18/19 07:52; Admin Dose 12.5 MG; Start 01/17/19 at 09:00 Fluoxetine HCl (Prozac) 20 mg BID PO Last administered on 01/18/19 07:51; Admin Dose 20 MG; Start 01/17/19 at 09:00 Lamotrigine (Lamictal) 25 mg DAILY PO Last administered on 01/18/19 07:51; Admin Dose 25 MG; Start 01/17/19 at 09:00 Losartan Potassium (Cozaar) 50 mg BID PO Last administered on 01/18/19 07:52; Admin Dose 50 MG; Start 01/17/19 at 09:00 Olanzapine (Zyprexa) 2.5 mg DAILY PO Last administered on 01/18/19 07:51; Admin Dose 2.5 MG; Start 01/17/19 at 09:00 Methylprednisolone Sodium Succinate (Solu-Medrol) 20 mg DAILY IV Last a dministered on 01/18/19 08:36; Admin Dose 20 MG; Start 01/18/19 at 09:00 Ceftriaxone Sodium 50 ml @ 100 mls/hr Q24H IVPB Last administered on 01/17/19 16:36; Admin Dose 100 MLS/HR; Start 01/17/19 at 16:00 Azithromycin 250 ml @ 250 mls/hr Q24H IVPB Last administered on 01/17/19 18:17; Admin Dose 250 MLS/HR; Start 01/17/19 at 17:30 Furosemide (Lasix) 40 mg BID DIURETICS IV Last administered on 01/18/19 05:59; Admin Dose 40 MG; Start 01/17/19 at 18:00 Arformoterol Tartrate (Brovana (Neb)) 2 ml BID RESP THERAPY INH ; Start 01/17/19 at 20:00 Budesonide (Pulmicort (Neb)) 0.5 mg BID RESP THERAPY INH ; Start 01/17/19 at 20:00 ALLISON MARTINEZ Jan 18, 2019 08:40
[2019-01-18] MEDS: ACETAMINOPHEN 325 MG TAB PO PRN (08:41)
[2019-01-18] MEDS ORDERED: METHYLPREDNISOLONE 40 MG INJ IV SCH (09:00)
[2019-01-18] MEDS ORDERED: FUROSEMIDE 40 MG TAB PO SCH (10:00)
[2019-01-18] MEDS ORDERED: AMLODIPINE 10 MG TAB PO SCH (13:00)
[2019-01-18] MEDS ORDERED: hydrALAzine 20 MG INJ IV PRN (13:00)
--- NOTE | 2019-01-18 15:53 | DS ---
Date/Time of Note Date/Time of Note DATE: 01/18/19 TIME: 15:48 Discharge Summary Admission/Discharge Info Admit Date/Time Jan 16, 2019 at 18:43 Discharge Date/Time Discharge Diagnosis 1. CHF, acute on chronic, systolic with last LVEF 35%, lasix, coreg, losartan 2. Dilated cardiomyopathy, no ischemia on stress thallium test, follow up with cardiology, recommended lifeVest 3. Acute bronchitis and COPD exacerbation, levaquin to rocephin/zithromax, continue on neb and steroid 4. Hypertension, stable 5. Dyslipidemia, lipitor 6. Morbid obesity with a BMI of 51: Weight reduction advised 7. H/o Substance abuse: Methamphetamine and nicotine 8. Patient signed AMA Patient Condition: Fair Hospital Course 53 yo M with a h/o dilated NICM (EF 30%), chronic systolic CHF, HTN, HL, methamphetamine abuse, psychiatric illness, who presented with dyspnea and cough and was found to be febrile. He is being treated for bronchitis as well as decompensated CHF. His BPs have been elevated. He feels better this am. He is concerned as he was told he needs an ICD and is afraid of dying. He has not seen an outpt carriage rider in many months. As of last admission where his Utox was positive for meth, he swears he has been abstinent. He is also taking his cardiac meds and he knows the names. He wants to turn his life around. Patient is seen by carriage rider, lifeVest is recommended, he will be rechecked in 2 more months (has been compliant and abstinent for one month) to decide if he needs an ICD still. Patient signed AMA and left the hospital without waiting for the LifeVest. Home Meds Reported Medications Salmeterol Xinaf/Fluticasone* (Advair*) 250-50 Diskus Inhaler, 1 INH INHALATION BID, #1 INHALER 01/16/19 Olanzapine* (Zyprexa*) 2.5 Mg Tablet, 2.5 MG PO DAILY, #30 TAB 01/16/19 Losartan Potassium* (Losartan Potassium*) 50 Mg Tablet, 50 MG PO BID, TAB 01/16/19 Lamotrigine* (Lamotrigine*) 25 Mg Tablet, 25 MG PO DAILY, TAB 01/16/19 Furosemide* (Furosemide*) 40 Mg Tablet, 40 MG PO DAILY, TAB 01/16/19 Fluoxetine Hcl* (Fluoxetine Hcl*) 20 Mg Capsule, 20 MG PO BID, CAP 01/16/19 Carvedilol* (Carvedilol*) 12.5 Mg Tablet, 12.5 MG PO BID, #60 TAB 01/16/19 Albuterol Sulfate* (Albuterol Sulfate* Neb) 0.083%-3 Ml Neb, 2.5 MG NEB Q4H PRN for WHEEZING AND SOB, #30 VIAL 01/16/19 Atorvastatin Calcium (Atorvastatin Calcium) 10 Mg Tablet, 10 MG PO QHS, #30 TAB 01/16/19 Aspirin* (Aspirin* EC) 81 Mg Tablet.dr, 81 MG PO DAILY, TAB 01/16/19 Discontinued Reported Medications Lamotrigine* (Lamictal* XR) 25 Mg Tab.er.24, 25 MG PO DAILY 09/06/12 Olanzapine (Zyprexa) 2.5 Mg Tablet, 2.5 MG PO DAILY 09/06/12 Atorvastatin (Lipitor) 10 Mg Tablet, 10 MG PO DAILY 09/06/12 Aspirin* (Aspirin* EC) 81 Mg Tablet.dr, 81 MG PO DAILY 09/06/12 Fluoxetine Hcl* (Fluoxetine Hcl*) 20 Mg Capsule, 20 MG PO BID 09/06/12 Discontinued Scripts Albuterol Sulfate* (Albuterol Sulfate* Neb) 0.083%-3 Ml Neb, 2.5 MG NEB Q4H, #30 VIAL Prov:MONIQUE FERNANDEZ [employer] 12/11/18 Salmeterol Xinaf/Fluticasone* (Advair*) 250-50 Diskus Inhaler, 1 INH INHALATION BID, #1 INHALER Prov:MONIQUE FERNANDEZ [employer] 12/11/18 Prednisone* (Prednisone*) 20 Mg Tab, 60 MG PO DAILY for 2 Days, #2 TAB Prov:MONIQUE FENRANDEZ [employer] 12/11/18 Furosemide* (Furosemide*) 40 Mg Tablet, 40 MG PO DAILY, #30 TAB Prov:MONIQUE FERNANDEZ [employer] 12/11/18 Losartan Potassium* (Cozaar*) 50 Mg Tablet, 50 MG PO BID, #60 TAB Prov:MONIQUE FERNANDEZ [employer] 12/11/18 Carvedilol* (Carvedilol*) 12.5 Mg Tablet, 12.5 MG PO BID, #60 TAB Prov:MONIQUE FERNANDEZ [employer] 12/11/18 Follow-up Plan PCP and cardiology as soon as possible Primary Care Provider Not On Staff Doctor Pending Labs Laboratory Tests Test 01/18/19 08:40 White Blood Count 15.1 10^3/ul (4.8-10.8) Red Blood Count 5.95 10^6/ul (4.70-6.10) Hemoglobin 14.1 g/dl (14.0-18.0) Hematocrit 46.3 % (42.0-52.0) Mean Corpuscular Volume 77.8 fl (82.0-101.0) Mean Corpuscular Hemoglobin 23.7 pg (29.0-33.0) Mean Corpuscular Hemoglobin Concent 30.5 g/dl (32.0-37.0) Red Cell Distribution Width 15.5 % (11.5-14.5) Platelet Count 321 10^3/UL (140-415) Mean Platelet Volume 10.9 fl (7.4-10.4) Immature Granulocytes % 0.900 % (0.001-0.429) Neutrophils % 79.7 % (39.0-77.0) Lymphocytes % 9.2 % (15.0-51.0) Monocytes % 10.0 % (0.0-11.0) Eosinophils % 0.0 % (0.0-7.0) Basophils % 0.2 % (0.0-2.0) Nucleated Red Blood Cells % 0.0 /100WBC (0.0-0.0) Immature Granulocytes # 0.130 10^3/ul (0.0-0.031) Neutrophils # 12.1 10^3/ul (1.6-7.5) Lymphocytes # 1.4 10^3/ul (0.8-2.9) Monocytes # 1.5 10^3/ul (0.3-0.9) Eosinophils # 0.0 10^3/ul (0.0-0.5) Basophils # 0.0 10^3/ul (0.0-0.1) Nucleated Red Blood Cells # 0.0 10^3/ul (0.0-0.0) Sodium Level 140 mmol/L (135-144) Potassium Level 4.1 mmol/L (3.5-5.1) Chloride Level 103 mmol/L (97-110) Carbon Dioxide Level 27 mmol/L (21-31) Anion Gap 10 (5-13) Blood Urea Nitrogen 36 mg/dl (7-20) Creatinine 0.85 mg/dl (0.61-1.24) Est Glomerular Filtrat Rate mL/min > 60 mL/min (>60) Glucose Level 168 mg/dl (70-220) Calcium Level 9.0 mg/dl (8.4-10.2) JERRY GARCIA MD Jan 18, 2019 15:53
== END 2019-01-18 15:05 | disposition left against medical advice (07) | DRG 871 ==
LOC: E/R 16:26 → 6WM 18:43
PROVIDERS: ADMIT Internal Medicine; ATTEND Internal Medicine
DX: A41.9 Sepsis, unspecified organism (principal); I50.23 Acute on chronic systolic (congestive) heart failure; J96.00 Acute respiratory failure, unspecified whether with hypoxia or hypercapnia; J44.1 Chronic obstructive pulmonary disease with (acute) exacerbation; I42.0 Dilated cardiomyopathy; E66.01 Morbid (severe) obesity due to excess calories; Z68.39 Body mass index [BMI] 39.0-39.9, adult; F43.10 Post-traumatic stress disorder, unspecified; F31.9 Bipolar disorder, unspecified; Z72.0 Tobacco use; F15.10 Other stimulant abuse, uncomplicated; I11.0 Hypertensive heart disease with heart failure; J20.9 Acute bronchitis, unspecified; E78.5 Hyperlipidemia, unspecified
CPT/HCPCS: 36415; 36600; 71045; 80048; 80053; 80307; 81003; 82803; 83036; 83605; 83735; 83880; 84443; 84484; 85025; 85610; 85730; 87040; 87086; 87400; 93005; 94640; 94644; 94660; 96365; 96368; 96375; J0360; J0456; J0692; J0696; J1100; J1940; J1956; J2405; J2920; J2930; J3030; J3370; J3475